=== PATIENT | female | born 1955 | race Caucasian/White ===

== ENCOUNTER 2018-10-03 09:32 | Inpatient (IN) | payer MEDICAID, OTHER, SELFPAY ==
[2018-09-19 13:34] VITALS: BMI 36.6
[2018-09-19 13:54] VITALS: BMI 36.1
[2018-10-03] VITALS (18 sets, daily range): BP systolic 119–167; BP diastolic 52–103; PULSE 86–109; RESP 10–94; TEMP 36.1–37.4; O2SAT 74–100; BMI 36.1
[2018-10-03] MEDS: ACETAMINOPHEN 325 MG TABLET 975 MG PO ×2 (09:49→23:03)
[2018-10-03] MEDS: LACTATED RINGERS 1,000 ML 42 ML IV ×2 (09:49→13:21)
[2018-10-03] MEDS: CELECOXIB 200 MG CAPSULE PO (09:49)
--- NOTE | 2018-10-03 10:10 | PM.PREOP ---
Pre-operative Note Interval Note History & Physical reviewed/Exam performed by Physician: Yes Changes to H&P: No
[2018-10-03] MEDS: CEFAZOLIN 2 GM/100 ML FROZ.PIGGY IV ×2 (10:55→19:36)
[2018-10-03] MEDS: TRANEXAMIC ACID 1,000 MG VIAL 1000 MG INJ ×2 (11:21→12:27)
--- NOTE | 2018-10-03 11:32 | SUR.OPER ---
Supine on padded OR bed. Pillow under head, arms secured on padded armboards <90 degree abduction. Safety belt across torso. Non-operative leg secured with tape over blanket over lower leg. Operative leg secured in DeMayo/Dimitry positioner. Foam padded brace at thigh of operative leg.
[2018-10-03] MEDS: BUPIVACAINE LIPOSOME 266 MG/20 ML VIAL INJ (11:42)
[2018-10-03] MEDS: BUPIVACAINE 0.25% W/ EPI 30 ML VIAL 60 ML INJ (11:43)
[2018-10-03] MEDS: MORPHINE 4 MG/ML INJ INJ (11:43)
--- NOTE | 2018-10-03 12:45 | PM.OP.1 ---
Operative Date/Time/Diagnoses Date of procedure: 10/03/18 Time of procedure: 12:30 Pre-op diagnosis: Right knee osteoarthritis Post-op diagnosis: same Procedure & Clinicians Procedure: Right total knee replacement Same procedure as scheduled: Yes Indications: The patient has had progressively worsening right knee pain with radiographic changes consistent with arthritis. Non-operative management has failed and the patient has requested total knee replacement. The risks, benefits and alternatives to surgery were discussed with the patient prior to proceeding. Risks discussed included, but were not limited to, failure to relieve pain, stiffness, infection, nerve damage, deep venous thrombosis, pulmonary embolism, stroke, coma, heart attack, permanent paralysis and , as well as the potential need for eventual revision of the prosthetic. Surgeon: Michael Quezada Batch Analyst: Phyllis Marrero Click Yes if Unassisted: No Anesthesia Type: Spinal, Sedation and Local Operative Notes Findings: Significant lateral and patellofemoral osteoarthritis with relative sparing of the medial compartment. Closure Type: primary Specimen(s): none sent Prosthetic devices, grafts, tissues, transplants, or devices: Implants used in this procedure were manufactured by the [employer] and [employer] and included the BCS II Journey total knee replacement with a size 4 right Oxinium femur, a size 4 right non porous tibial base plate, a 32 mm oval Ryann II patellar component and a 9 mm cross-linked polyethylene tibial insert. Applied: implant(s) Estimated Blood Loss (mL): 50 Blood products transfused: none Tourniquet time (min): 51 Procedure in detail: The patient was seen in the pre-operative area, where the patient identified the right knee as the operative site and this was marked with my initials. The patient received pre-operative antibiotics, and was taken to the operating room and placed on the operative table in the supine position. After satisfactory anesthesia, a multimedia author out was performed. The right leg was encircled with a tourniquet about the proximal thigh, and the leg was prepared from the toes to the tourniquet with ChloroPrep in the usual fashion and draped through sterile drapes. The leg was elevated and exsanguinated with Eschmark bandage and the tourniquet inflated to 250 mmHg pressure. The knee was approached through an approximately 18 cm incision centered over the patella and carried into the knee through a medial parapatellar arthrotomy. The anterior osteophytes and soft tissues were removed. The rotational landmarks of Lycoming's line and the transepicondylar axis were marked on the femur with electrocautery, and intramedullary guide holes for the femur and tibia were created. The distal femoral cut was made in 6 degrees of valgus using the intramedullary guide at the primary cut setting. The proximal tibial cut was then made using the intramedullary guide, taking 9 mm of bone off the less involved side. The extension gap was checked and the rotation of the femoral component confirmed with the gap balancing system. The anterior, posterior and chamfer cuts were then made. The posterior osteophytes and soft tissues were then removed. The posterior capsule was injected with part of a mixture of 60 ml 0.25% Marcaine mixed with 20 ml Exparel and 4 mg of morphine for post-operative pain control. The remainder of this mixture was injected into the capsule and subcutaneous tissues during cement curing. The tibia was prepared with the rotation set by an extra medullary guide. Trial tibial and femoral components were then placed and the intercondylar notch cut through the femoral trial. Range of motion was 0-135 degrees, with good stability throughout the range. The patella was then cut to accommodate the patellar prosthetic. There was no need for a lateral release. The trials were then removed, and the femoral hole plugged with a bone plug. The bone was prepared with pulsatile lavage, and dried with a sponge. Cement was applied and the final prosthetics placed. Excess cement was removed during and after cement curing. After confirming there was no extruded cement posteriorly, the final tibial insert was placed. The knee was copiously irrigated and the tourniquet deflated. Hemostasis was obtained. The capsule was closed with interrupted # 2 polyester suture. The subcutaneous layer was closed with 3-0 Vicryl, and the skin with a running 3-0 V-Lock suture and SteriStrips. An Aquacel Ag dressing was applied and the patient was taken to recovery having tolerated the procedure well. Complications: none Condition: stable Disposition: PACU Plan for aftercare: The patient will be maintained on a standard total knee replacement protocol with weight bearing as tolerated. The patient will receive aspirin and sequential compression devices for DVT prophylaxis. The patient will be discharged home when safe for the home environment.
[2018-10-03] MEDS: HYDROMORPHONE 2 MG INJ 0.5 MG IV ×8 (12:55→13:30)
[2018-10-03] MEDS: LORazepam 2 MG/ML SYRINGE 0.25 MG IV ×3 (13:25→13:35)
[2018-10-03] MEDS: fentaNYL 100 MCG/2 ML INJ 50 MCG IV ×2 (13:35→13:40)
[2018-10-03] MEDS: hydrOXYzine 50 MG/ML INJ 25 MG IM (13:40)
[2018-10-03] MEDS: LACTATED RINGERS 1,000 ML 125 ML IV (14:45)
[2018-10-03] MEDS: NALOXONE 0.4 MG/ML VIAL IV ×2 (14:50→14:52)
--- NOTE | 2018-10-03 15:16 | SUR.PHASEI ---
PT HAD A ROUGH RECOVERY IN pacu REQUIRING Q 5 MINUTE pain meds until vital signs and demeanor improved. pt continued to state 20/10 pain even when appearing quite comfortable on face or FLACC scale. I stopped medicating with narcotics for 35 minutes prior to start of transfer. pt off narcotics for 45 minutes at time of report to acute care RN. However, on transfer pt appeared sleepy and acute care equipment having difficulty maintaining a reliable SPO2 reading pt would range from 98 % to 60 % range but still alert and oriented and answering questions with pink warm dry skin. at approximately 1450 was unable to obtain an spo2 and pt started to appear dusky and would not respond to name or tactile stimulation. acute care Day-RN was still at bedside we opened and used Ambu bag while calling for immediate assistance/ rapid response. Hospitalist , RT and nursing staff all assisted. pt had pulse throughout and very shallow respirations . Narcan administered with immediate return of SPO2 to 99 %. Dr Culp-anesthesia and Dr. Quezada - surgeon notified
--- NOTE | 2018-10-03 15:42 | PC.NURSE ---
1425 Pt arrived from PACU via bed. Pt has c-pap on. Pt is awake, skin/ lips are pink. sats are ranging from 99 to 77.1440 RT notified to get a good connection for accurate Sats monitoring. 1449 Pt WRITING CENTER DIRECTOR at bedside and removed cpap to start NC O2, Pt non responsive at this time,, pushed alarm button, got ambu bag respirations started. [id number] Dr Huff at bedside, Narcan IV given immed. Pt responded immed, eyes open, turned head. 1452 additional 0.4mg Narcan given as Pt unresponsive again. Pt responed immed . [address] Pt on tele now. SCDs non bilat lower ext. abiodun wrap to R TKA in place. Pt able to move feet. 1515 Glucose 171. Spouse remains at bedside. Pt c/o pain, next shift was given report. Not able to safely give narcotics at this time. Pt on c pap w/2L O2 bleed in.
[2018-10-03 15:48] LABS: Add Manual Diff / Slide Review NO; Basophils Absolute Auto 0 /uL (0-100); Basophils Percent Auto 0.1 % (0-2); Eosinophils Absolute Auto 0 /uL (0-450); Eosinophils Percent Auto 0.1 % (2-4); Hematocrit 38.9 % (36-46); Hemoglobin 12.9 g/dL (12.0-16.0); Lymphocytes Absolute Auto 600 /uL (1100-4500); Lymphocytes Percent Auto 3.9 % (25-40); Mean Corpuscular HGB Conc 33.2 % (30-36); Mean Corpuscular Hemoglobin 30.6 PG (26-34); Mean Corpuscular Volume 92.2 fL (80-100); Monocytes Absolute Auto 200 /uL (0-900); Monocytes Percent Auto 1.3 % (3-14); Neutrophils Absolute Auto 14800 /uL (1500-7000); Neutrophils Percent Auto 94.6 % (50-75); Platelet Count 236 X10^3/uL (150-400); Red Blood Cell Count 4.22 X10^6/uL (4.0-5.2); Red Cell Distribution Width 13.6 % (11.6-14.8); White Blood Cell Count 15.6 X10^3/uL (4.5-11.0)
[2018-10-03 16:05] LABS: Alanine Aminotransferase 26 IU/L (9-52); Albumin Globulin Ratio 1.4 (1.0-2.8); Alkaline Phosphatase 116 U/L (38-126); Aspartate Aminotransferase 22 IU/L (14-36); BUN Creatinine Ratio 25.7 (6-22); Bilirubin Total 0.4 mg/dL (0.2-1.3); Blood Urea Nitrogen 18 mg/dL (7-17); Calcium 8.8 mg/dL (8.4-10.2); Carbon Dioxide 30 mmol/L (22-32); Chloride 99 mmol/L (98-107); Creatine Kinase 52 U/L (30-135); Estimated Glomerular Filt Rate > 60.0 mL/min (>60); Globulin 2.9 g/dL (1.7-4.1); Glucose 170 mg/dL (80-110); HEMOLYSIS < 15 (0-50); Magnesium 1.7 mg/dL (1.6-2.3); Sodium 137 mmol/L (137-145); Total Protein 6.9 g/dL (6.3-8.2)
[2018-10-03 16:15] LABS: Troponin I < 0.012 ng/mL (0.01-0.034)
--- NOTE | 2018-10-03 16:24 | PT.IPTN ---
Current Diagnoses Bilateral primary osteoarthritis of knee (10/03/18) Poisoning by unspecified antiepileptic and sedative-hypnotic drugs, accidental (unintentional), initial encounter (10/03/18) Surgery Performed Operation Date: 10/03/18 10:45 Actual Procedures p Total Knee Arthroplasty(Right) - Michael Quezada MD Physical Therapy Treatment Note M3 PT-IP Subjective Start: 10/03/18 16:23 Freq: NEEDED Status: Active Protocol: Document 10/03/18 16:23 AB (Rec: 10/03/18 16:24 AB [id number]) Subjective Physical Therapy Visit Type Notes per nurse, pt had an episode of not breathing and currently transferred to ICU due to O2 desaturation. pt on hold for PT eval today. will follow up tomorrow.
--- NOTE | 2018-10-03 16:25 | PC.NURSE ---
1545: Since rapid response and Narcan administration, patient observed awake, alert, body with slight tremor at times. VS stable, HR tachy at [address] bpm. EKG result sinus tach. Dr Huff in patient's room a couple of times to assess situation. I requested that Day SANFORD day shift, who I had just gotten report from, call Dr Culp to notify her of situation, as patient had spinal anethesia and that this was hospital protocol to notify the Anesthesiologist. Day day shift RN then called down to PACU to notify Dr Culp of situation, Day spoke to OR it disaster recovery manager who stated that Dr Quezada and Dr Culp were aware of the situation, but in a case but would see patient after out of OR. Patient observed with tears running down face, crying & upset, she stated to me that pain was really bad, saying can't you give me something? Talked to patient & spouse about which medications she received in OR/PACU, I explained that Lorazepam & Vistaril are still working to relieve pain & relax her & that this nurse was uncomfortable giving her narcotic medication at this point. After talking to patient & having her deep breathe & concentrate on other things, she fell asleep easily, wearing CPAP with 2L O2 bled into CPAP. When i walked out of room within 1-2 minutes her continuous pulse ox alarmed, pt observed with CPAP mask on face, patient with observable apnea, sats 74-75% She easily woke to voice, after deep breathing sats went immediately back up to 99%. When dozing again, sats dropped to low 80's. I increased supplemental O2 to 3L and called studio operations manager Jeanne to notify that I was needing to be 1:1 with this patient to keep her awake, alert & breathing with sats over 88% She told me that she would transfer patient to ICU for closer nurse/patient observation. Spouse at bedside, aware of plan to transfer patient. 1600: RT was notified of situation & need for them to assist during transport. Pt transfered by bed, by charger operator helper Jeanne & RT, pt on MI hooked up to portable O2 tank during transfer. patient report given to Nimo SANFORD. I notified PACU that patient had been transfered, nurse stated she would pass message on to Dr Culp.
[2018-10-03] MEDS: NALOXONE 0.4 MG/ML VIAL 0.2 MG IV (16:30)
[2018-10-03] MEDS: ACETAMINOPHEN 1,000 MG/100 ML VIAL IV (17:51)
[2018-10-03] MEDS: LACTATED RINGERS IV ×2 (17:52→17:54)
[2018-10-03] MEDS: NALOXONE IV ×2 (17:52→17:54)
[2018-10-03] MEDS: INSULIN ASPART 100 UNIT/ML INSULN PEN SUBCUT ×2 (18:06→20:24)
[2018-10-03] MEDS: HYDROMORPHONE 2 MG TABLET PO ×2 (19:31→20:22)
[2018-10-03] MEDS: DOCUSATE 100 MG CAPSULE PO (20:22)
[2018-10-03] MEDS: ASPIRIN EC 81 MG TABLET PO (20:22)
[2018-10-03] MEDS: ATORVASTATIN 20 MG TABLET PO (20:22)
[2018-10-03] MEDS: DULOXETINE 30 MG CAPSULE 60 MG PO (20:23)
[2018-10-03] MEDS: GABAPENTIN 300 MG CAPSULE PO (20:23)
[2018-10-03] MEDS: hydrOXYzine pamoate 25 MG CAPSULE PO (20:24)
--- NOTE | 2018-10-03 22:08 | PC.NURSE ---
Evening Shift Note: Pt received from Acute Care following narcan administration after coming to floor from PACU post-op. Pt arrives on 2 L NC, somnolent, frequent desaturations to 82% with periods of apnea when pt not stimulated. Pt placed on home cpap with CO2 monitor under mask. Pt unable to maintain wakefulness or respiratory status. Despite somnolence pt reporting severe pain, up to 10/10, described as sharp and throbbing. Given additional 0.2 mg IV narcan with improvement of respiratory status, although pt remained somnolent and had difficulty staying awake during meal. Pt denies nausea. Able to tolerate ADA diet. R foot with postive DP and warm, good cap refill, though slight numbness in right foot. Dr. Culp to bedside to formulate pain plan. Pt given 1000 mg iv tylenol per MD order. Started on gtts of LR with 0.4 mg iv narcan per 1 L, Dr. Culp explained that this could help improve respiratory status with only minimal effect on pain relief. Pt then crying, with pain 10/10, more wakeful and no longer having apnea. Given 2 mg po dilaudid with pain level only minimally improved to 9/10. Then given pm meds including gabapentin with an additional 2 mg po dilaudid and 25 mg po vistiril. Pt now reports pain 5/10 and tolerable. Maintaining RR 12, SPO2 on 1 L NC is 94%. Will continue to monitor, notify MD with changes.
[2018-10-03] MEDS: HYDROMORPHONE 4 MG TABLET PO (23:49)
[2018-10-04] VITALS (7 sets, daily range): BP systolic 104–151; BP diastolic 50–94; PULSE 77–97; RESP 14–18; TEMP 36.1–36.5; O2SAT 81–99
[2018-10-04] MEDS: CEFAZOLIN 2 GM/100 ML FROZ.PIGGY IV (04:11)
[2018-10-04] MEDS: HYDROMORPHONE 4 MG TABLET PO (04:12)
[2018-10-04 05:12] LABS: Hematocrit 36.3 % (36-46); Hemoglobin 12.2 g/dL (12.0-16.0)
--- NOTE | 2018-10-04 06:47 | PC.NURSE ---
Patient is alert and oriented, drowsy after receiving PO Dilaudid per prn orders, but still appropriate. Slept with 1.5L O2, SpO2 >92%, ETCO2 40s, removed cannula in am, but she desats to 86% when dozing, RR 12-18, breath sounds CTA, has harsh cough. SR, VSS. LR with narcan infused overnight as ordered, SL in am, tolerating PO intake. CMS intact, drsg CDI.
--- NOTE | 2018-10-04 07:58 | PM.PNPO.1 ---
Subjective Date Patient Seen: 10/04/18 Time Patient Seen: 07:58 Interval history: The patient reports that her pain finally got under control this morning. Yesterday she was reporting ?05/04? pain and was over narcotized. Exam Vital Signs (past 8 hours): - 10/04/18 00:00 10/04/18 04:10 Temperature 97.0 F L 97.4 F L Pulse Rate 96 H 77 Respiratory Rate 14 16 Blood Pressure 151/94 H 135/73 Pulse Oximetry 98 98 Oxygen Delivery Method [place] Nasal Cannula Oxygen Flow Rate 1 Narrative Exam Narrative: Right knee wound is dressed. There is no drainage on the bandage. Calf is soft. Light touch and motion are intact in the right lower extremity. Objective Labs Result Diagrams: 10/04/18 04:45 10/03/18 15:28 Labs: Laboratory Results - last 24 hr 10/03/18 10/03/18 10/04/18 15:28 15:28 04:30 WBC 15.6 H RBC 4.22 Hgb 12.9 Hct 38.9 MCV 92.2 MCH 30.6 MCHC 33.2 RDW 13.6 Plt Count 236 Neut % (Auto) 94.6 H Lymph % (Auto) 3.9 L [place] % (Auto) 1.3 L Eos % (Auto) 0.1 L Baso % (Auto) 0.1 Neut # (Auto) 48626 H Lymph # (Auto) 600 L [place] # (Auto) 200 Eos # (Auto) 0 Baso # (Auto) 0 Sodium 137 Potassium 4.0 Chloride 99 Carbon Dioxide 30 BUN 18 H Creatinine 0.70 Estimated GFR > 60.0 BUN/Creatinine Ratio 25.7 H Glucose 170 H Calcium 8.8 Magnesium 1.7 Total Bilirubin 0.4 AST 22 ALT 26 Alkaline Phosphatase 116 Total Creatine Kinase 52 CK-MB (CK-2) TNP CK-MB (CK-2) Rel Index TNP Troponin I < 0.012 Total Protein 6.9 Albumin 4.0 Globulin 2.9 Albumin/Globulin Ratio 1.4 Nasal Screen MRSA (PCR) Negative for mrsa 10/04/18 04:45 WBC RBC Hgb 12.2 Hct 36.3 MCV MCH MCHC RDW Plt Count Neut % (Auto) Lymph % (Auto) [place] % (Auto) Eos % (Auto) Baso % (Auto) Neut # (Auto) Lymph # (Auto) [place] # (Auto) Eos # (Auto) Baso # (Auto) Sodium Potassium Chloride Carbon Dioxide BUN Creatinine Estimated GFR BUN/Creatinine Ratio Glucose Calcium Magnesium Total Bilirubin AST ALT Alkaline Phosphatase Total Creatine Kinase CK-MB (CK-2) CK-MB (CK-2) Rel Index Troponin I Total Protein Albumin Globulin Albumin/Globulin Ratio Nasal Screen MRSA (PCR) Assessment & Plan Post-op Postoperative Procedures Operation Date: 10/03/18 10:45 Actual Procedures Side Surgeon p Total Knee Arthroplasty Right Michael Quezada MD Postoperative day: 1 Postoperative status: doing well, marginal pain control and anemia Postoperative status narrative: The patient is stable postoperative day 1 status post right total knee replacement. She has a mild, anticipated, post hemorrhagic anemia. She has had poor pain control and was over narcotized yesterday in an attempt to get it under control. I suspect a portion of this is due to anxiety about the procedure which she expressed preoperatively. Postoperative plan: routine post-op care and ambulate Postoperative plan narrative: I had an extensive discussion this patient regarding appropriate pain control. She has demanded to be awakened out of complete sleep to receive her narcotic pain relievers as a scheduled medication. I have explained to her that I do not wish her to be over narcotized again and I would prefer that she awaken and then ask for her medications. I reassured her that there is nothing that has gone wrong with her procedure and the both the operative procedure and her x-rays look perfect. We will advance her physical therapy today and keep her in the hospital for additional observation. Time Spent With Patient less than 15 minutes
--- NOTE | 2018-10-04 08:14 | CM.DANOTE ---
DCP:Case received, EMR reviewed and met with patient. Introduced self and role. DCP template completed with information currently available. Patient is a 63 year old female who admitted yesterday morning to the care of the surgical team. PCP: [facility] [place]/Medicaid. Patient came to hospital for surgical procedure. She had R. total knee arthroplasty. Patient has had chronic knee pain, which has continued to worsen. Patient is in the ICU secondary to some decreased oxygen sats due to pain medication. Met with patient in her room, she was alert and awake. She is independent at home, and lives with her , Khurram. Patient stated that she has not had to use a walker or cane prior to surgery, and she has been driving. She stated, she hopes that she can go home tomorrow. P: DCP to follow closely. Will see how she does with physical therapy when she is able. Radha Whitney RN/Night Time Babysitter
[2018-10-04] MEDS: INSULIN ASPART 100 UNIT/ML INSULN PEN SUBCUT ×2 (08:45→12:01)
[2018-10-04] MEDS: MELOXICAM 7.5 MG TABLET 15 MG PO (08:47)
[2018-10-04] MEDS: ACETAMINOPHEN 325 MG TABLET 975 MG PO ×3 (08:48→20:49)
[2018-10-04] MEDS: DULOXETINE 30 MG CAPSULE 60 MG PO ×2 (08:49→20:50)
[2018-10-04] MEDS: ASPIRIN EC 81 MG TABLET PO ×2 (08:49→20:51)
[2018-10-04] MEDS: DOCUSATE 100 MG CAPSULE PO ×2 (08:49→20:52)
[2018-10-04] MEDS: GABAPENTIN 300 MG CAPSULE PO ×2 (08:50→20:51)
[2018-10-04] MEDS: hydroCHLOROthiazide 25 MG TABLET PO (08:50)
[2018-10-04] MEDS: LOSARTAN 50 MG TABLET 100 MG PO (08:51)
[2018-10-04] MEDS: METFORMIN XR 500 MG TABLET PO (08:52)
[2018-10-04] MEDS: PANTOPRAZOLE 20 MG TABLET PO (08:52)
[2018-10-04] MEDS: HYDROMORPHONE 2 MG TABLET 4 MG PO ×4 (09:02→19:40)
--- NOTE | 2018-10-04 10:49 | PT.IIE ---
Current Diagnoses Bilateral primary osteoarthritis of knee (10/03/18) Poisoning by unspecified antiepileptic and sedative-hypnotic drugs, accidental (unintentional), initial encounter (10/03/18) Surgery Performed Operation Date: 10/03/18 10:45 Actual Procedures p Total Knee Arthroplasty(Right) - Michael Quezada MD Surgical History (Last Updated 09/19/18 @ 13:55 by Tessa Terry, RN) History of arthroscopy of both knees (Acute) History of lumbar surgery (Acute) History of total left hip arthroplasty (Acute ~2014) Hx of tonsillectomy (Acute) S/P left rotator cuff repair (Acute) Medical History (Last Updated 09/19/18 @ 13:57 by Tessa Terry RN) HLD (hyperlipidemia) (Acute) HTN (hypertension) (Acute) History of hysterectomy (Acute) Knee tumor (Acute) Pre-diabetes (Acute) Sleep apnea with use of continuous positive airway pressure (CPAP) (Acute) Physical Therapy Inpatient Evaluation/Re-Eval M1 PT/OT-IP Prior Functional Status Start: 10/03/18 16:23 Freq: NEEDED Status: Active Protocol: Document 10/04/18 10:49 AB (Rec: 10/04/18 12:02 AB [id number]) Medical Review Prior Functional Status Medical History Reviewed Yes Communication able to make needs known Mobility and Gait stated that she is modified independent with all mobilities and ambulation without AD Social History Household Members spouse Living Arrangements House Number of Floors (Floors) One Floor Number of Stairs To Enter/Railing? 4 steps to enter with bilateral wide rails and can only hold on to one rail at a time Home Environment High Toilet Walk in Shower Home Equipment Four Wheel Walker Straight Cane Additional Social History Comment stated that she has a high bed and steps up on a stool to get in M2 PT-IP Current Condition Start: 10/03/18 16:23 Freq: NEEDED Status: Active Protocol: Document 10/04/18 10:49 AB (Rec: 10/04/18 12:02 AB [id number]) Physical Therapy Current Condition Current Condition Evaluation Date 10/04/18 Treatment Diagnosis s/p R TKA; difficulty in walking Onset Date 10/03/18 Weight Bearing Status Weight Bearing Status Weight Bear as Tolerated M3 PT-IP Subjective Start: 10/03/18 16:23 Freq: NEEDED Status: Active Protocol: Document 10/04/18 10:49 AB (Rec: 10/04/18 12:02 AB [id number]) Subjective Physical Therapy Visit Type Type Initial Evaluation Visit Start Time 10:49 Visit Stop Time 11:32 Total Visit Minutes 43 Number of ORNAMENTAL PLASTER STICKER Visits 0 Physical Therapy Visit Comments Patient Comments pt agrees to do PT but requested to go back to bed afterwards Therapy Pain Assessment Pain When Pain Assessed At Rest Pain Present Pain Present Pain Reported Location Right Knee Intensity 2 Scale Used increases to 10/10 with movement Pain Management Techniques Apply Cold Re-positioning Timing of Activity with Medications M4 PT-IP Mobility and Gait Start: 10/03/18 16:23 Freq: NEEDED Status: Active Protocol: Document 10/04/18 10:49 AB (Rec: 10/04/18 12:02 AB [id number]) PT-Bed Mobility Assessment Sit to Supine Sit to Supine Minimal Assistance PT-Transfer Assessment Sit to and From Stand Sit to and from Stand Moderate Assistance 1 Person Assistance Use of Upper Extremities Equipment Transfer Assistive Device Gait Belt Front Wheeled Walker Orthotic/Prosthetic Devices or Brace: No Gait Assessment Gait Gait Assistance Required: Moderate Assistance 1 Person Assist Distance (Feet) 8 Able to Maintain Weight Bearing Status Yes During Gait Assistive Devices Assistive Device Gait Belt Front Wheeled Walker Orthotic/Prosthetic Devices or Brace: No Gait Deviations General Gait Pattern Antalgic Decreased Stride Length Decreased Feet Clearance Step-to Gait Factors Limiting Gait Function Factors Limiting Gait Function Decreased Activity Tolerance Decreased Strength Limited Range of Motion Pain Poor Balance Comments Gait Comments Pt with slight R knee buckling with ambulation requiring assist to stabilize and cues to activate quads PT-Balance Assessment Sitting Balance and Reactions Static Sitting Balance Ability Good Dynamic Sitting Balance Ability Good Standing Balance and Reactions Static Standing Balance Ability Fair Dynamic Standing Balance Ability Poor Device Used FWW M5 PT-IP Objective Assessments Start: 10/03/18 16:23 Freq: NEEDED Status: Active Protocol: Document 10/04/18 10:49 AB (Rec: 10/04/18 12:02 AB [id number]) Orientation Orientation/Cognition Level of Alertness Alert Orientation Name Age Birthday Place Situation Language Function Ability No Deficits Noted Memory Description Short Term Impaired Gross Range of Motion Lower Extremity ROM Assessment Right Impaired Impairments R knee flexion only up to ~ 70 deg R knee extension lacking ~ 20 deg to neutral Strength Lower Extremity Strength Assessment Right Impaired Knee 3-/5 Coordination Assessment Gross Coordination Gross Coordination WNL Sensation Assessment Sensation Gross Sensation WNL Muscle Tone Muscle Tone WNL Yes M6 PT-IP Treatment Start: 10/03/18 16:23 Freq: NEEDED Status: Active Protocol: Document 10/04/18 10:49 AB (Rec: 10/04/18 12:02 AB [id number]) Physical Therapy Treatment Exercises Exercises Ankle Pumps Quad Sets Heel Slides Education Education Provided Precautions Weight Bearing Status Post-Op Packet Safety M7 PT-IP Assessment and Plan Start: 10/03/18 16:23 Freq: NEEDED Status: Active Protocol: Document 10/04/18 10:49 AB (Rec: 10/04/18 12:02 AB [id number]) PT Summary Assessment and Plan Potential Rehabilitation Potential Good Status of Condition at Evaluation Evolving Summary Impairments Pain ROM Strength Balance Coordination Sensation Tone Cognition Bed Mobility Transfers Gait Activity Tolerance Assessment Summary pt requiring mod A with transfers and ambulation using FWW. pt plans to go home with spouse to assist. caregiver training will be conducted and stair training prior to d/c. pt stated that she is set up for outpt PT. Goals Bed Mobility Goal Standby Assistance Transfer Goal Standby Assistance Front Wheeled Walker Four Wheeled Walker Gait Goal Standby Assistance Front Wheel Walker Four Wheel Walker Gait Distance 150 Other Goals up/down 4 steps with 1 rail SBA up/down step stool using FWW to get into bed SBA Days to Meet Goals 5 Frequency of Treatment Frequency Of Treatment Twice a Day Treatment Plan Physical Therapy Treatment Plan Bed Mobility Training Transfer Training Gait Training Therapeutic Exercise Balance Retraining Post Op Education Discharge Planning Hot or Cold Pack Neuromuscular Re-ed Coordination Retraining Manual Therapy Other Recommendations and Next Treatment ambulation, caregiver training Focus when appropriate, bed mobility Recommendations To Nursing Amount of Assist Needed 1 Person Assist Discharge Recommendations PT Discharge Recommendations Home with Assistance Outpatient PT Equipment Needed for Home Before FWW if not safe with 4WW Discharge
--- NOTE | 2018-10-04 14:23 | PC.NURSE ---
Day Shift Note Alert and oriented x3. On 2L NC with oxygen sats 92-98%. Up to chair for the majority of the AM and then back to bed with PT. One person assist with FWW. Attempted to wean to RA but oxygen saturations decreased to 81% when pt at rest - RR in the 12-14 bpm range but breathing is visibly shallow. Encouraged to cough and deep breathe and to use IS with oxygen sats increasing to 98%. Oxygen sats would then decrease again to 80-81% while resting. 2L NC thus replaced. Reports pain 13/10 prior to pain medication administration, decreasing to 7/10 on reassessment and patient stating she is good. Able to participate in therapy and is currently sitting up in bed talking with visitors. Ice pack in place to right knee. Call light within reach, using appropriately to make needs known.
--- NOTE | 2018-10-04 14:36 | PT.IPTN ---
Current Diagnoses Bilateral primary osteoarthritis of knee (10/03/18) Poisoning by unspecified antiepileptic and sedative-hypnotic drugs, accidental (unintentional), initial encounter (10/03/18) Surgery Performed Operation Date: 10/03/18 10:45 Actual Procedures p Total Knee Arthroplasty(Right) - Michael Quezada MD Physical Therapy Treatment Note M2 PT-IP Current Condition Start: 10/03/18 16:23 Freq: NEEDED Status: Active Protocol: Document 10/04/18 10:49 AB (Rec: 10/04/18 12:02 AB [id number]) Physical Therapy Current Condition Current Condition Evaluation Date 10/04/18 Treatment Diagnosis s/p R TKA; difficulty in walking Onset Date 10/03/18 Weight Bearing Status Weight Bearing Status Weight Bear as Tolerated M3 PT-IP Subjective Start: 10/03/18 16:23 Freq: NEEDED Status: Active Protocol: Document 10/04/18 14:36 AB (Rec: 10/04/18 15:57 AB [id number]) Subjective Physical Therapy Visit Type Type Treatment Note Visit Start Time 14:36 Visit Stop Time 15:34 Total Visit Minutes 58 Number of INTEGRATED CIRCUIT FABRICATOR Visits 0 Physical Therapy Visit Comments Patient Comments pt agreeable to do PT Therapy Pain Assessment Pain When Pain Assessed At Rest Pain Present Pain Present Pain Reported Location Right Knee Intensity 2 Scale Used Numeric (1 - 10) Pain Management Techniques Apply Cold Re-positioning Timing of Activity with Medications M4 PT-IP Mobility and Gait Start: 10/03/18 16:23 Freq: NEEDED Status: Active Protocol: Document 10/04/18 14:36 AB (Rec: 10/04/18 15:57 AB [id number]) PT-Bed Mobility Assessment Supine to Sit Supine to Sit Standby Assistance PT-Transfer Assessment Sit to and From Stand Sit to and from Stand Contact Guard Assistance Equipment Transfer Assistive Device Gait Belt Front Wheeled Walker Orthotic/Prosthetic Devices or Brace: No Transfers Transfer Destination Toilet Transfer Technique pt ambulated to the toilet using FWW Transfer Ability Level of Assist Contact Guard Assistance Use of Upper Extremities Comments Mobility Comments pt completed sit to stand from EOB CGA and cues for techniques. pt performed 5 reps. pt ambulated to the toilet using FWW CGA and cues. completed sit to stand from the toilet using grab bars CGA to min A. pt ambulated towards the sink using FWW CGA and was able to maintain standing using FWW CGA doing handwashing. pt agreed to do more ambulation. pt has a high bed at home and uses a foot stool to get up the bed. completed up/down foot stool into the bed using FWW x 2 reps. pt completed requiring CGA to min A and cues. pt agreed to sit up on chair afterwards. positioned pt on chair. ice pack provided. call light and table placed within reach. set up caregiver training with pt and spouse at 10 am tomorrow. Gait Assessment Gait Gait Assistance Required: Standby Assistance Minimum Assistance Distance (Feet) 125 Able to Maintain Weight Bearing Status Yes During Gait Assistive Devices Assistive Device Gait Belt Front Wheeled Walker Orthotic/Prosthetic Devices or Brace: No Gait Deviations General Gait Pattern Antalgic Decreased Stride Length Decreased Feet Clearance Step-to Gait Factors Limiting Gait Function Factors Limiting Gait Function Decreased Activity Tolerance Decreased Strength Limited Range of Motion Pain Poor Balance Poor Safety Awareness Comments Gait Comments pt with (+) LOB requiring min A while pushing FWW to get over sliding door thread. pt educated on how to manuever FWW over threads and curbs safely. pt understood. M5 PT-IP Objective Assessments Start: 10/03/18 16:23 Freq: NEEDED Status: Active Protocol: Document 10/04/18 10:49 AB (Rec: 10/04/18 12:02 AB [id number]) Orientation Orientation/Cognition Level of Alertness Alert Orientation Name Age Birthday Place Situation Language Function Ability No Deficits Noted Memory Description Short Term Impaired Gross Range of Motion Lower Extremity ROM Assessment Right Impaired Impairments R knee flexion only up to ~ 70 deg R knee extension lacking ~ 20 deg to neutral Strength Lower Extremity Strength Assessment Right Impaired Knee 3-/5 Coordination Assessment Gross Coordination Gross Coordination WNL Sensation Assessment Sensation Gross Sensation WNL Muscle Tone Muscle Tone WNL Yes M6 PT-IP Treatment Start: 10/03/18 16:23 Freq: NEEDED Status: Active Protocol: Document 10/04/18 14:36 AB (Rec: 10/04/18 15:57 AB [id number]) Physical Therapy Treatment Education Education Provided Weight Bearing Status Safety M7 PT-IP Assessment and Plan Start: 10/03/18 16:23 Freq: NEEDED Status: Active Protocol: Document 10/04/18 14:36 AB (Rec: 04/17/19 15:57 AB [id number]) PT Summary Assessment and Plan Potential Rehabilitation Potential Good Summary Impairments Pain ROM Strength Balance Coordination Sensation Tone Cognition Bed Mobility Transfers Gait Activity Tolerance Progress Towards Goals Slow Progress due to Pain Slow Progress due to Activity Tolerance Assessment Summary pt progressing with mobility and plans to go home with spouse to assist. caregiver training set up for tomorrow at 10 am. d/c depending on caregiver training and stair training. Goals Bed Mobility Goal Standby Assistance Transfer Goal Standby Assistance Front Wheeled Walker Four Wheeled Walker Gait Goal Standby Assistance Front Wheel Walker Four Wheel Walker Gait Distance 150 Other Goals up/down 4 steps with 1 rail SBA/SPC up/down step stool using FWW to get into bed SBA Days to Meet Goals 5 Frequency of Treatment Frequency Of Treatment Twice a Day Treatment Plan Physical Therapy Treatment Plan Bed Mobility Training Transfer Training Gait Training Therapeutic Exercise Balance Retraining Post Op Education Discharge Planning Hot or Cold Pack Neuromuscular Re-ed Coordination Retraining Manual Therapy Other Recommendations and Next Treatment caregiver training 10/05 10 am Focus ; stair training 1 rail and SPC Recommendations To Nursing Amount of Assist Needed 1 Person Assist Discharge Recommendations PT Discharge Recommendations Home with Assistance Outpatient PT Equipment Needed for Home Before FWW Discharge
[2018-10-04] MEDS: ATORVASTATIN 20 MG TABLET PO (20:52)
--- NOTE | 2018-10-04 21:31 | PC.NURSE ---
2100- Assessment reviewed and documentation is complete and accurate.
[2018-10-05] MEDS: HYDROMORPHONE 2 MG TABLET PO ×3 (01:30→15:34)
[2018-10-05 01:34] VITALS: BP 111/58; PULSE 81; RESP 16; TEMP 35.8; O2SAT 98
[2018-10-05] MEDS: ACETAMINOPHEN 325 MG TABLET 975 MG PO ×2 (04:13→15:33)
[2018-10-05] MEDS: HYDROMORPHONE 2 MG TABLET 4 MG PO ×2 (04:13→08:14)
[2018-10-05 04:22] VITALS: BP 148/74; PULSE 87; RESP 16; TEMP 36.3; O2SAT 98
--- NOTE | 2018-10-05 07:32 | P.DS_ITS ---
History of Present Illness Date Patient Seen: 10/05/18 Time Patient Seen: 07:29 Chief complaint: Total Knee Arthroplasty Narrative: The history and physical examination are contained in the chart and a previously completed note. Please refer to that note for this information. Discharge Providers Date of admission: 10/03/18 09:32 Discharge Date: 10/05/18 Primary care physician: Annabel Alcaraz PA-C Consults: 10/03/18 14:37 Consult to Discharge Planning Routine Comment: Consult to Physical Therapy Evaluate & Treat Comment: Physician Instructions: postop TKA protocol 10/03/18 15:08 Consult to Respiratory Therapy Evaluate & Treat Comment: Physician Instructions: Evaluate and treat Discharge provider: Michael Quezada MD Summary Discharge Diagnosis: 1. Right knee osteoarthritis 2. Mild post hemorrhagic anemia 3. Transitory respiratory depression due to over narcotization Hospital Course: The patient was admitted to the hospital and taken directly to the operating room on October 03, 2018. She underwent a right total knee replacement without complications. In the recovery room she complained of severe pain and received a large amount of narcotic pain reliever. This led to a a transitory respiratory depression which was reversed with appropriate use of Narcan. She was monitored closely during and after this event and this did not recur. She continued to complain of marginal pain control throughout her hospitalization but made good progress in physical therapy and it was felt that she would be ready for discharge on postoperative day 2 after additional physical therapy. Status at Discharge Cognitive/behavioral status at discharge: oriented Functional status at discharge: uses cane/walker Overall status at discharge: patient is progressing back to baseline Time Spent with Patient Less than 30 minutes Exam Vital Signs (past 8 hours): - 10/05/18 01:34 10/05/18 04:22 Temperature 96.5 F L 97.4 F L Pulse Rate 81 87 Respiratory Rate 16 16 Blood Pressure 111/58 L 148/74 H Pulse Oximetry 98 98 Oxygen Delivery Method Nasal Cannula Oxygen Flow Rate 2 Narrative Exam Narrative: Right knee wound is dressed with no drainage on the bandage. Calf is soft. Light touch and motion are intact in the right lower extremity Objective Labs Result Diagrams: 10/04/18 04:45 10/03/18 15:28 Discharge Plan Discharge Plan Patient Disposition: Home Discharge Med Rec/Prescriptions Prescriptions: New aspirin 81 mg Tablet,Delayed Release (Dr/Ec) 81 mg PO BID 42 Days Qty: 84 RF: 0 hydroxyzine pamoate 25 mg Capsule 25 mg PO Q6HR PRN (Reason: Nausea) Qty: 40 RF: 0 Continued metformin 500 mg Tablet 500 mg PO QAM RF: 0 pantoprazole 20 mg Tablet,Delayed Release (Dr/Ec) 20 mg PO DAILY RF: 0 gabapentin 300 mg Capsule 300 mg PO BID RF: 0 hydrochlorothiazide 25 mg Tablet 25 mg PO DAILY RF: 0 losartan 100 mg Tablet 100 mg PO DAILY RF: 0 duloxetine 60 mg Capsule,Delayed Release(Dr/Ec) 60 mg PO BID RF: 0 atorvastatin 20 mg Tablet 20 mg PO BEDTIME RF: 0 zolpidem 5 mg Tablet 5 mg PO BEDTIME RF: 0 hydrocodone-acetaminophen 5-325 mg Tablet 0.5 tab PO Q6H PRN (Reason: Pain (Scale Score 1-3)) RF: 0 Follow up/Referrals: Annabel Alcaraz PA-C [Primary Care Provider] - Michael Quezada MD [Physician] - 3-5 Days Provider Discharge Instructions Diet: Diet as Tolerated and Carb-consistent/Diabetic Activity: You may bear weight as tolerated on your right leg. Cold/Heat Therapy: Apply ice for 15 minutes every hour as needed for pain to the right knee. Skin/Wound/Dressing Care Report to your healthcare provider any signs of infection, such as:: chills, fever, night sweats, increased pain, unusual drainage and unusual redness Dressing: Remove the Art wrap 3 days after surgery. leave the deeper dressing in place. You may shower with the deeper dressing in place. If the central st rip of the deeper dressing becomes saturate with either water or blood please call the office to have it changed. Visit Report/Discharge Packet Instructions: DI for Knee Replacement Stand Alone Forms: Surgery Discharge Discharge Data Primary Care Provider: Annabel Alcaraz Attending Provider: Michael Quezada Admit Date/Time: 10/03/18 09:32
[2018-10-05 08:00] VITALS: BP 117/67; PULSE 89; RESP 18; TEMP 36.9; O2SAT 100
[2018-10-05] MEDS: POLYETHYLENE GLYCOL 3350 17 GM POWD.PACK PO (08:04)
[2018-10-05] MEDS: hydroCHLOROthiazide 25 MG TABLET PO (08:05)
[2018-10-05] MEDS: DULOXETINE 30 MG CAPSULE 60 MG PO (08:05)
[2018-10-05] MEDS: LOSARTAN 50 MG TABLET 100 MG PO (08:05)
[2018-10-05] MEDS: GABAPENTIN 300 MG CAPSULE PO (08:05)
[2018-10-05] MEDS: MELOXICAM 7.5 MG TABLET 15 MG PO (08:05)
[2018-10-05] MEDS: ASPIRIN EC 81 MG TABLET PO (08:05)
[2018-10-05] MEDS: PANTOPRAZOLE 20 MG TABLET PO (08:05)
[2018-10-05] MEDS: METFORMIN XR 500 MG TABLET PO (08:05)
[2018-10-05] MEDS: DOCUSATE 100 MG CAPSULE PO (08:06)
--- NOTE | 2018-10-05 10:52 | PC.NURSE ---
Addendum entered by Isis Ibarra R.N. 10/05/18 15:29: pt discharged per order- medicated with pain rx prior to dc Original Note: Addendum entered by Isis Ibarra R.N. 10/05/18 12:27: after speaking with PA - DR Quezada was called and his nurse responded to me with his response- pt has cleared all hurdles medically and PT cleared and they run the risk of having to pay out of pocket for additional 24 hours in hospital when not medically necessary- pt remains tearful and anxious but is understanding of this and is agreeable to dc Original Note: pt with dc orders this am from MD - reviewed plan with pt and her spouse and pt became tearful and obvious anxious about going home- she has worked with PT this am and cleared for steps and discharge per MD order- and in fact PT signing off this case. Pain seemingly controlled with po dilaudid and prn vistaril- update to ORTHO PA -
--- NOTE | 2018-10-05 11:44 | PT.IPTN ---
Current Diagnoses Bilateral primary osteoarthritis of knee (10/03/18) Poisoning by unspecified antiepileptic and sedative-hypnotic drugs, accidental (unintentional), initial encounter (10/03/18) Surgery Performed Operation Date: 10/03/18 10:45 Actual Procedures p Total Knee Arthroplasty(Right) - Michael Quezada MD Physical Therapy Treatment Note M2 PT-IP Current Condition Start: 10/03/18 16:23 Freq: NEEDED Status: Active Protocol: Document 10/04/18 10:49 AB (Rec: 10/04/18 12:02 AB [id number]) Physical Therapy Current Condition Current Condition Evaluation Date 10/04/18 Treatment Diagnosis s/p R TKA; difficulty in walking Onset Date 10/03/18 Weight Bearing Status Weight Bearing Status Weight Bear as Tolerated M3 PT-IP Subjective Start: 10/03/18 16:23 Freq: NEEDED Status: Active Protocol: Document 10/05/18 11:26 SA (Rec: 10/05/18 11:44 SA [email or web address]) Subjective Physical Therapy Visit Type Type Treatment Note Visit Start Time 09:58 Visit Stop Time 10:45 Total Visit Minutes 47 Number of CONSULTANT LUXURY AND AUTO. VICE PRESIDENT JAGUAR BRAND (EX ) Visits 1 Physical Therapy Visit Comments Patient Comments Pt up in chair with present, agreeable to PT. Therapy Pain Assessment Pain When Pain Assessed During Mobility Pain Present Pain Present Pain Reported Location Right Knee Intensity 2 Scale Used Numeric (1 - 10) Pain Management Techniques Apply Cold Re-positioning Timing of Activity with Medications M4 PT-IP Mobility and Gait Start: 10/03/18 16:23 Freq: NEEDED Status: Active Protocol: Document 10/05/18 11:26 SA (Rec: 10/05/18 11:44 SA [id number]) PT-Bed Mobility Assessment Supine to Sit Supine to Sit Standby Assistance Sit to Supine Sit to Supine Standby Assistance Scooting Scooting to Edge of Bed Standby Assistance Scooting Up and Down in Bed Standby Assistance PT-Transfer Assessment Sit to and From Stand Sit to and from Stand Contact Guard Assistance 1 Person Assistance Equipment Transfer Assistive Device Gait Belt Front Wheeled Walker Orthotic/Prosthetic Devices or Brace: No Transfers Transfer Destination Bed Chair Transfer Ability Level of Assist Standby Assistance Contact Guard Assistance 1 Person Assistance Comments Mobility Comments Simulation of getting in/out of elevated bed as she has at home. Pt able to ascend/ descend single 6 step and lift BLEs over EOB with SBA and min cues. Stand pivot txs to chair and EOB with SBA-CGA and FWW. Pt 02 sats 92-95% with mobility and no SOB noted . Gait Assessment Gait Gait Assistance Required: Contact Guard Assist Distance (Feet) 125 Able to Maintain Weight Bearing Status Yes During Gait Assistive Devices Assistive Device Gait Belt Front Wheeled Walker Orthotic/Prosthetic Devices or Brace: No Gait Deviations General Gait Pattern Antalgic Decreased Stride Length Decreased Feet Clearance Step-to Gait Factors Limiting Gait Function Factors Limiting Gait Function Decreased Activity Tolerance Decreased Strength Limited Range of Motion Comments Gait Comments Pt able to correct out of step to gait pattern with cues but relies heavily on UEs for WBing. Pt had minor knee buckle at end of walk but was able to correct/stabalize herself. Pt fearful of knee buckle, education provided on healing process and muscle recovery after surgery as this should correct with strengthening. Stair Climbing Assessment Evaluation Level of Assist On Stairs Contact Guard Assistance Devices Stair Climbing Assistive Devices Front Wheel Walker Technique/Endurance Stair Climbing Direction Ascend and Descend Stair Climbing Technique Step to Step Number of Steps Climbed 1 Query Text: Stair Climbing Set # Repetitions (reps) 3 Comments Stair Climbing Comments Pt able to ascend/descent single step 3x in a row with min cues and CGA. Also able to step up backwards onto step at EOB with CGA to simulate getting in/out of her elevated bed. PT-Balance Assessment Sitting Balance and Reactions Static Sitting Balance Ability Good Dynamic Sitting Balance Ability Normal M5 PT-IP Objective Assessments Start: 10/03/18 16:23 Freq: NEEDED Status: Active Protocol: Document 10/04/18 10:49 AB (Rec: 10/04/18 12:02 AB [id number]) Orientation Orientation/Cognition Level of Alertness Alert Orientation Name Age Birthday Place Situation Language Function Ability No Deficits Noted Memory Description Short Term Impaired Gross Range of Motion Lower Extremity ROM Assessment Right Impaired Impairments R knee flexion only up to ~ 70 deg R knee extension lacking ~ 20 deg to neutral Strength Lower Extremity Strength Assessment Right Impaired Knee 3-/5 Coordination Assessment Gross Coordination Gross Coordination WNL Sensation Assessment Sensation Gross Sensation WNL Muscle Tone Muscle Tone WNL Yes M6 PT-IP Treatment Start: 10/03/18 16:23 Freq: NEEDED Status: Active Protocol: Document 10/05/18 11:26 SA (Rec: 10/05/18 11:44 [id number]) Physical Therapy Treatment Exercises Exercises Ankle Pumps Gluteal Sets Quad Sets Heel Slides Education Education Provided Weight Bearing Status Safety M7 PT-IP Assessment and Plan Start: 10/03/18 16:23 Freq: NEEDED Status: Active Protocol: Document 10/05/18 11:26 (Rec: 10/05/18 11:44 [id number]) PT Summary Assessment and Plan Potential Rehabilitation Potential Good Summary Impairments Pain ROM Strength Balance Coordination Sensation Tone Cognition Bed Mobility Transfers Gait Activity Tolerance Assessment Summary Caregiver training completed with patient and spouse, pt anxious about probable d/c home today. Pt has FWW, elevated toilet seat and step for in/out of bed. Pt progressing well with mobilities requiring SBA for bed mobility and CGA for txs and gait. Pt also has OP PT set up for next week. Frequency of Treatment Frequency Of Treatment Twice a Day Treatment Plan Physical Therapy Treatment Plan Bed Mobility Training Transfer Training Gait Training Therapeutic Exercise Balance Retraining Post Op Education Discharge Planning Hot or Cold Pack Neuromuscular Re-ed Coordination Retraining Manual Therapy Recommendations To Nursing Amount of Assist Needed 1 Person Assist Discharge Recommendations PT Discharge Recommendations Home with Assistance Outpatient PT
[2018-10-05] MEDS: SODIUM CHLORIDE 0.9% FLUSH 10 ML IV (11:58)
== END 2018-10-05 15:34 | disposition home or self-care (01) | DRG 470 ==
LOC: AC 15:22 → ICU 15:52
PROVIDERS: Internal Medicine; Admitting Provider Orthopaedic Surgery; PCP Physician Assistant; Visit Provider Orthopaedic Surgery
PROC: 0SRC0JZ Replacement of Right Knee Joint with Synthetic Substitute, Open Approach (ICD-10-PCS; CPT 27447; principal; 2018-10-03 10:45)
DX: M17.11 Unilateral primary osteoarthritis, right knee (principal); Z96.642 Presence of left artificial hip joint; G47.33 Obstructive sleep apnea (adult) (pediatric); I10 Essential (primary) hypertension; E78.5 Hyperlipidemia, unspecified; R73.03 Prediabetes; Z79.84 Long term (current) use of oral hypoglycemic drugs; E66.9 Obesity, unspecified; Z68.38 Body mass index [BMI] 38.0-38.9, adult; T40.605A Adverse effect of unspecified narcotics, initial encounter; G93.89 Other specified disorders of brain
CPT/HCPCS: 36415; 80053; 82550; 82962; 83735; 84484; 85014; 85018; 85025; 87797; 93005; 93010; 97116; 97162; 97530; C1776; C9290; J0131; J0690; J1100; J1170; J2060; J2250; J2270; J2310; J2405; J2704; J3010; J3410

== ENCOUNTER → 2019-07-02 15:52 | Outpatient (CLI) | payer MEDICARE, OTHER, MEDICAID, SELFPAY ==
[2018-10-03 18:35] VITALS: BMI 36.1
[2019-07-02 17:54] LABS: Add Manual Diff / Slide Review NO; Basophils Absolute Auto 0 /uL (0-100); Basophils Percent Auto 0.5 % (0-2); Eosinophils Absolute Auto 100 /uL (0-450); Hematocrit 39.9 % (36-46); Hemoglobin 13.6 g/dL (12.0-16.0); Lymphocytes Absolute Auto 2100 /uL (1100-4500); Lymphocytes Percent Auto 29.4 % (25-40); Mean Corpuscular HGB Conc 34.1 % (30-36); Mean Corpuscular Hemoglobin 31.1 PG (26-34); Mean Corpuscular Volume 91.2 fL (80-100); Monocytes Absolute Auto 500 /uL (0-900); Monocytes Percent Auto 6.8 % (3-14); Neutrophils Absolute Auto 4400 /uL (1500-7000); Neutrophils Percent Auto 61.3 % (50-75); Platelet Count 252 X10^3/uL (150-400); Red Blood Cell Count 4.37 X10^6/uL (4.0-5.2); Red Cell Distribution Width 13.7 % (11.6-14.8); White Blood Cell Count 7.2 X10^3/uL (4.5-11.0)
[2019-07-02 18:01] LABS: Hemoglobin A1C% w Est Avg Glu 6.2 % (4.0-6.0)
[2019-07-02 18:11] LABS: Carbon Dioxide 32 mmol/L (22-32); Chloride 96 mmol/L (98-107); HEMOLYSIS 22 (0-50); Potassium 4.1 mmol/L (3.4-5.1); Sodium 137 mmol/L (137-145)
== END ==
PROVIDERS: PCP Physician Assistant; Visit Provider Orthopaedic Surgery
DX: Z01.812 Encounter for preprocedural laboratory examination (principal); Z01.818 Encounter for other preprocedural examination; R73.9 Hyperglycemia, unspecified
CPT/HCPCS: 36415; 80051; 83036; 85025; 93005

== ENCOUNTER 2019-08-02 15:05 | Observation (INO) | payer MEDICARE, MEDICAID, SELFPAY ==
[2018-10-03 18:35] VITALS: BMI 36.1
[2019-07-19 10:52] VITALS: BMI 37.5
[2019-08-01] VITALS (16 sets, daily range): BP systolic 97–142; BP diastolic 41–78; PULSE 73–87; RESP 12–16; TEMP 35.6–36.7; O2SAT 91–100; BMI 37.5
--- NOTE | 2019-08-01 06:00 | DI.RAD.S_ITS ---
PROCEDURE: XR PELVIS 1-2V INDICATIONS: right CARMEN TECHNIQUE: 1 view of the lower pelvis acquired. COMPARISON: None. FINDINGS: Bones: Patient is status post right hip arthroplasty, with hardware components in expected positions. The hip joint appears congruent. The visualized bony structures appear intact. Left hip arthroplasty noted. Lower lumbar spine spondylosis and facet disease Soft tissues: Overlying postoperative changes are noted. No suspicious soft tissue densities. IMPRESSION: Expected postoperative appearance Dictated by: Zbigniew Church M.D. on 08/01/2019 at 18:09 Approved by: Zbigniew Church M.D. on 08/01/2019 at 18:10
[2019-08-01] MEDS: ACETAMINOPHEN 325 MG TABLET 975 MG PO (10:39)
[2019-08-01] MEDS: CELECOXIB 200 MG CAPSULE PO (10:39)
[2019-08-01] MEDS: PREGABALIN 75 MG CAPSULE PO (10:56)
--- NOTE | 2019-08-01 11:48 | PM.PREOP ---
Pre-operative Note Interval Note History & Physical reviewed/Exam performed by Physician: Yes Changes to H&P: No
[2019-08-01] MEDS: LACTATED RINGERS 1,000 ML 42 ML IV ×2 (12:09→13:22)
[2019-08-01] MEDS: CEFAZOLIN 2 GM/100 ML FROZ.PIGGY IV ×2 (12:29→19:56)
[2019-08-01] MEDS: TRANEXAMIC ACID 1,000 MG VIAL 2000 MG INJ ×2 (12:50→13:57)
--- NOTE | 2019-08-01 13:03 | SUR.OPER ---
Lateral on padded OR bed. Gel axillary roll. Arms secured on padded armboard with pillow supporting top arm. Padded hip positioner braces x4 - anterior and posterior chest and pelvis. Additional gel pad used anterior pelvis. Gel pad under bottom leg from knee to foot and secured with tape over sheet.
[2019-08-01] MEDS: ROPIVACAINE 0.5% PF 5 MG/ML 20ML VIAL 60 ML INJ (13:09)
[2019-08-01] MEDS: MORPHINE 4 MG/ML INJ INJ (13:11)
[2019-08-01] MEDS: KETOROLAC 30 MG/ML VIAL IV (13:11)
--- NOTE | 2019-08-01 14:26 | PM.OP.1 ---
Operative Date/Time/Diagnoses Date of procedure: 08/01/19 Time of procedure: 14:26 Pre-op diagnosis: Right hip degenerative joint disease Post-op diagnosis: same Procedure & Clinicians Procedure: Right total hip arthroplasty (CPT code 13869 with apartment assistant manager) Same procedure as scheduled: Yes Indications: Patient is an 64-year-old female with severe right hip DJD. The patient has pain with activities and at rest, limited ambulation and activity tolerance, difficulties with ADLs, and failure of conservative treatment. We have discussed the nature of condition, treatment options, risks and benefits, and patient elects to proceed with total hip arthroplasty and gives informed consent. Surgeon: Mike Duval Mail Deliverer: Roni Mckenzie Anesthesia Type: General and Spinal Operative Notes Closure Type: primary Specimen(s): none sent Prosthetic devices, grafts, tissues, transplants, or devices: Acetabulum: Miguel [employer] Nephew R3 acetabular component size 50 mm Femoral component: Miguel [employer]hew Anthology stem size 8 with standard offset Femoral head: 32 mm + 0 Oxinium Estimated Blood Loss (mL): 200 Blood products transfused: none Procedure in detail: After satisfaction induction of anesthetic, and administration of IV antibiotics, the patient was positioned in the lateral decubitus position with all bony prominences well padded and pelvic position secured using a hip chief drafter positioning device. Right hip and lower extremity prepped and draped in the usual sterile fashion, 1st dose of intravenous tranexamic acid was administered, then a longitudinal incision was created centered over the greater trochanter and carried sharply through the skin and subcutaneous tissues down to the fascia kenisha which was divided longitudinally and retracted with a Charnley retractor. External rotators visualize, cut, tagged, and retracted posteriorly, then the capsule was cut in a T-type fashion with the corners tagged and retracted. Hip was dislocated and femoral neck cut made according to preoperative templating. Acetabular retractors then placed, and the acetabular labrum and osteophytes were excised. The acetabulum was then sequentially reamed to 49 mm with an excellent circumferential ream and fit with the trial. The trial component was removed and a permanent size 50 mm Miguel and Nephew R3 acetabular component was selected, positioned, and impacted with satisfactory position and fixation achieved. Permanent liner was then inserted with the elevated lip directed posteriorly. Soft tissue then removed off the lateral femoral neck in the lateral neck was entered using a box osteotome. T-handled reamers placed down the canal followed by sequential broaching to 8 with the final broach left in place for trial reduction which demonstrated excellent leg length, range of motion, and stability characteristics with a 32 mm +0 trial ball. The trial and broach were removed, and a permanent size 8 Miguel and Nephew Anthology stem was selected and inserted with excellent position and fixation achieved. Another trial reduction yielded the above characteristics so the trial ball was exchanged for a permanent 32 mm +0 Oxinium ball. The hip was irrigated and reduced and excellent leg length range of motion and stability characteristics were achieved and maintained. Periarticular tissues were infiltrated with ropivacaine, morphine, and Toradol. The hip was copiously irrigated, and the capsule repaired with #2 Ethibond, and the piriformis was repaired back to the greater trochanter with the same. Fascia kenisha closed with interrupted #1 Ethibond sutures, and the subcutaneous tissues were closed in 2 layers of 0 Vicryl and 2 0 Vicryl. Skin was closed with ebony and sterile dressings applied. Second dose of tranexamic acid was administered intravenously, and the anesthetic was terminated. Complications: none Post-operative Condition: stable Disposition: PACU Plan for aftercare: Patient will be admitted to the acute care faye, and anticipate discharge on postop day 1-2 with follow-up in office in 10-14 days. Outpatient physical therapy will be arranged and patient will continue to observe posterior hip precautions. Patient will continue use of postoperative Lovenox for 10 days postop.
[2019-08-01] MEDS: LACTATED RINGERS 1,000 ML 125 ML IV ×2 (15:49→23:43)
[2019-08-01] MEDS: ACETAMINOPHEN 325 MG TABLET 650 MG PO ×2 (16:00→20:04)
[2019-08-01] MEDS: METFORMIN HCL 500 MG TABLET PO (17:24)
[2019-08-01] MEDS: HYDROCODONE/ACET 5/325 TABLET 1 TAB PO (17:24)
[2019-08-01] MEDS: HYDROMORPHONE 2 MG TABLET PO (18:49)
[2019-08-01] MEDS: hydrOXYzine pamoate 25 MG CAPSULE PO (20:04)
[2019-08-01] MEDS: ATORVASTATIN 20 MG TABLET PO (20:04)
[2019-08-01] MEDS: DULOXETINE 30 MG CAPSULE 60 MG PO (20:04)
[2019-08-01] MEDS: GABAPENTIN 300 MG CAPSULE 600 MG PO (20:05)
[2019-08-01] MEDS: HYDROCODONE/ACET 5/325 TABLET 2 TAB PO (21:47)
[2019-08-01] MEDS: MAG HYDROX/ALUM/SIMETH 30 ML UDC PO (21:48)
--- NOTE | 2019-08-01 23:36 | PC.NURSE ---
Pt c/o L. chest discomfort and down under her breast, 2/10 pain. does not radiate to the back or arm. no abdominal pain. VSS. pt thinks it might be acid reflux. she does have hx acid reflux. notified Dr. Davenport, VTO Maalox PRN, continue to monitor. R.hip pain controlled with 2 tabs of norco. ordered to changed dosage of norco to 2 tabs. Dilaudid was ineffective. Pt ambulated to the BSC/fww.
[2019-08-01] MEDS: ZOLPIDEM 5 MG TABLET PO (23:42)
[2019-08-02] VITALS (7 sets, daily range): BP systolic 107–138; BP diastolic 52–66; PULSE 75–118; RESP 16–20; TEMP 36.1–36.7; O2SAT 87–96
[2019-08-02] MEDS: HYDROCODONE/ACET 5/325 TABLET 2 TAB PO ×4 (01:49→20:59)
[2019-08-02] MEDS: CEFAZOLIN 2 GM/100 ML FROZ.PIGGY IV (04:32)
[2019-08-02] MEDS: HYDROMORPHONE 2 MG TABLET PO ×3 (06:11→23:36)
[2019-08-02 07:11] LABS: Hematocrit 30.9 % (36-46); Hemoglobin 10.6 g/dL (12.0-16.0)
--- NOTE | 2019-08-02 07:50 | PM.PNPO.1 ---
Subjective Subjective Date Patient Seen: 08/02/19 Time Patient Seen: 07:50 Interval history: POD #1 s/p RTHAZEL w Dr. Duval. No acute events overnight. Patient complains of minimal pain in right hip. Has not mobilized with PT. Voiding without difficulty or assistance. Denies fever, chills, chest pain, shortness of breath, pain in calves. Exam Vital Signs (past 8 hours): - 08/01/19 23:55 08/02/19 01:46 08/02/19 01:49 Temperature 97.7 F Pulse Rate 84 Respiratory Rate 16 Blood Pressure 118/66 Pulse Oximetry 95 87 L 94 08/02/19 04:40 Temperature 97.7 F Pulse Rate 84 Respiratory Rate 16 Blood Pressure 125/66 Pulse Oximetry 93 Oxygen Delivery Method CPAP Oxygen Flow Rate 0 Narrative Exam Narrative: 64 year old female is lying in bed in no apparent distress. A&Ox3. Dressing CDI, SCDs in place. Sensory function grossly intact to light touch in LE BL. Dorsalis pedis 2+ BL. Able to actively dorsiflex/plantar flex BL. Calves warm, soft, compressible, non tender to palpation. Objective Labs Result Diagrams: 08/02/19 06:38 Labs: Laboratory Results - last 24 hr 08/02/19 06:38 Hgb 10.6 L Hct 30.9 L Assessment & Plan Post-op Postoperative Procedures: Procedures Operation Date: 08/01/19 11:45 Actual Procedures Side Surgeon p Total Hip Arthroplasty Right Mike Duval MD Postoperative day: 1 Postoperative plan narrative: Mobilize with PT Continue current pain management Continue Lovenox and SCDs for DVT prophylaxis Discharge home likely in next 24-48 hours Time Spent With Patient Time with patient: less than 15 minutes
[2019-08-02] MEDS: DULOXETINE 30 MG CAPSULE 60 MG PO ×2 (08:58→20:57)
[2019-08-02] MEDS: ENOXAPARIN 40 MG/0.4 ML SYRINGE SUBCUT (08:59)
[2019-08-02] MEDS: METFORMIN HCL 500 MG TABLET PO (08:59)
[2019-08-02] MEDS: LOSARTAN 50 MG TABLET 100 MG PO (08:59)
[2019-08-02] MEDS: PANTOPRAZOLE 20 MG TABLET PO (08:59)
[2019-08-02] MEDS: GABAPENTIN 300 MG CAPSULE PO (08:59)
[2019-08-02] MEDS: hydrOXYzine pamoate 25 MG CAPSULE PO (10:12)
--- NOTE | 2019-08-02 10:29 | PT.IIE ---
Current Diagnoses Unilateral primary osteoarthritis, right hip (08/01/19) Surgery Performed Operation Date: 08/01/19 11:45 Actual Procedures p Total Hip Arthroplasty(Right) - Mike Duval MD Surgical History (Last Updated 07/19/19 @ 10:58 by Tessa Terry RN) History of arthroplasty of right knee (Acute 10/03/18) History of arthroscopy of both knees (Acute) History of hysterectomy (Acute) History of lumbar surgery (Acute) History of total left hip arthroplasty (Acute ~2014) Hx of tonsillectomy (Acute) S/P left rotator cuff repair (Acute) Medical History (Last Updated 07/19/19 @ 12:40 by Tessa Terry RN) HLD (hyperlipidemia) (Acute) HTN (hypertension) (Acute) Knee tumor (Acute) Narcotic-induced respiratory depression (Acute 10/03/18) Pre-diabetes (Acute) Sleep apnea with use of continuous positive airway pressure (CPAP) (Acute) Physical Therapy Inpatient Evaluation/Re-Eval M1 PT/OT-IP Prior Functional Status Start: 08/02/19 12:15 Freq: NEEDED Status: Active Protocol: Document 08/02/19 10:29 AB (Rec: 08/02/19 12:43 AB [id number]) Medical Review Prior Functional Status Medical History Reviewed Yes Communication able to make needs known Mobility and Gait pt stated that she is independent with all mobilities and ambulation without AD Social History Household Members spouse Living Arrangements Mobile home Number of Floors (Floors) One Floor Number of Stairs To Enter/Railing? 4 steps to enter with wide bilateral rails and can only hold on to one rail at a time Home Environment High Toilet,Walk in Shower Home Equipment Front Wheel Walker,Four Wheel Walker,Straight Cane,Grab Bars In Shower M2 PT-IP Current Condition Start: 08/02/19 12:15 Freq: NEEDED Status: Active Protocol: Document 08/02/19 10:29 AB (Rec: 08/02/19 12:43 AB [id number]) Physical Therapy Current Condition Current Condition Evaluation Date 08/02/19 Treatment Diagnosis s/p R CARMEN posterior approach; difficulty in walking Onset Date 08/01/2019 Precautions Posterior Hip Precautions No Hip Flexion > 90 degrees,No Hip Internal Rotation,No Hip Adduction Weight Bearing Status Weight Bearing Status Weight Bear as Tolerated Allowed Weight Bearing Amount (enter % RLE WBAT or #) (%) M3 PT-IP Subjective Start: 08/02/19 12:15 Freq: NEEDED Status: Active Protocol: Document 08/02/19 10:29 AB (Rec: 08/02/19 12:43 AB [id number]) Subjective Physical Therapy Visit Type Type Initial Evaluation Visit Start Time 10:29 Visit Stop Time 11:06 Total Visit Minutes 37 Number of SAMPLER FIRST Visits 0 Physical Therapy Visit Comments Patient Comments pt agreeable to do PT; requested to go back to bed afterwards Therapy Pain Assessment Pain When Pain Assessed At Rest Pain Present Pain Present Pain Reported Location Right Knee Intensity 8 Scale Used Numeric (1 - 10) Pain Management Techniques Apply Cold,Re-positioning, Timing of Activity with Medications M4 PT-IP Mobility and Gait Start: 08/02/19 12:15 Freq: NEEDED Status: Active Protocol: Document 08/02/19 10:29 AB (Rec: 08/02/19 12:43 AB [id number]) PT-Bed Mobility Assessment Sit to Supine Sit to Supine Moderate Assistance,1 Person Assistance PT-Transfer Assessment Sit to and From Stand Sit to and from Stand Minimal Assistance,1 Person Assistance,Use of Upper Extremities Equipment Transfer Assistive Device Gait Belt,Front Wheeled Walker Orthotic/Prosthetic Devices or Brace: No Transfers Transfer Destination Bed Transfer Technique ambulated using FWW Transfer Ability Level of Assist Minimal Assistance,1 Person Assistance,Use of Upper Extremities Comments Mobility Comments pt sitting on chair and agreed to do PT but requested to go back t bed afterwards. educted pt on hip precautions. completed sit to stand from the chair min A and cues to maintain hip precautions. pt ambulated in room using FWW ~ 30 ft with min A and cues. ambulated back to bed. completed sit to supine mod A with LE elevation to the bed. positioned pt on the bed. call light and table placed within reach. Gait Assessment Gait Gait Assistance Required: Minimum Assistance,1 Person Assist Distance (Feet) 30 Able to Maintain Weight Bearing Status Yes During Gait Assistive Devices Assistive Device Gait Belt,Front Wheeled Walker Orthotic/Prosthetic Devices or Brace: No Gait Deviations General Gait Pattern Antalgic,Decreased Stride Length,Decreased Feet Clearance,Step-to Gait Factors Limiting Gait Function Factors Limiting Gait Function Decreased Activity Tolerance, Decreased Strength,Limited Range of Motion,Pain,Poor Balance,Poor Safety Awareness PT-Balance Assessment Sitting Balance and Reactions Static Sitting Balance Ability Good Dynamic Sitting Balance Ability Good Standing Balance and Reactions Static Standing Balance Ability Fair Dynamic Standing Balance Ability Fair Device Used FWW M5 PT-IP Objective Assessments Start: 08/02/19 12:15 Freq: NEEDED Status: Active Protocol: Document 08/02/19 10:29 AB (Rec: 08/02/19 12:43 AB [id number]) Orientation Orientation/Cognition Level of Alertness Alert Orientation Name,Age,Place,Situation Language Function Ability No Deficits Noted Safety Awareness Understands Safety Issues Memory Description Short Term Impaired Gross Range of Motion Lower Extremity ROM Assessment Within Functional Limits Strength Lower Extremity Strength Assessment Right Impaired Hip 3+/5 Knee 3+/5 Coordination Assessment Gross Coordination Gross Coordination WNL Sensation Assessment Sensation Gross Sensation WNL Muscle Tone Muscle Tone WNL Yes M6 PT-IP Treatment Start: 08/02/19 12:15 Freq: NEEDED Status: Active Protocol: Document 08/02/19 10:29 AB (Rec: 08/02/19 12:43 AB [id number]) Physical Therapy Treatment Exercises Exercises Heel Slides Education Education Provided Precautions,Weight Bearing Status,Post-Op Packet,Safety M7 PT-IP Assessment and Plan Start: 08/02/19 12:15 Freq: NEEDED Status: Active Protocol: Document 08/02/19 10:29 AB (Rec: 08/02/19 12:43 AB [id number]) PT Summary Assessment and Plan Potential Rehabilitation Potential Good Status of Condition at Evaluation Evolving Summary Impairments Pain,ROM,Strength,Balance, Coordination,Sensation,Tone, Cognition,Bed Mobility, Transfers,Gait,Activity Tolerance Assessment Summary pt requiring mod A with bed mobility and min A with transfers and ambulation using FWW. pt stated that spouse will assist but is not sure how much he can assist her since he has his own medical issues. will conduct caregiver training when appropriate. will also complete stair training prior to d/c . pt stated that she is already set up for outpt PT. Goals Bed Mobility Goal Standby Assistance Transfer Goal Standby Assistance,Front Wheeled Walker Gait Goal Standby Assistance,Front Wheel Walker Gait Distance 150 Other Goals up/down 4 steps 1 rail SBA Days to Meet Goals 5 Frequency of Treatment Frequency Of Treatment Twice a Day Treatment Plan Physical Therapy Treatment Plan Bed Mobility Training,Transfer Training,Gait Training, Therapeutic Exercise,Balance Retraining,Post Op Education, Discharge Planning,Hot or Cold Pack,Neuromuscular Re-ed, Coordination Retraining,Manual Therapy Recommendations To Nursing Amount of Assist Needed 1 Person Assist Discharge Recommendations PT Discharge Recommendations Home with Assistance, Outpatient PT Transportation Needs at Discharge Private Vehicle
--- NOTE | 2019-08-02 14:09 | CM.IDA ---
Discharge Planning/Care Management CM Discharge Assessment Start: 08/02/19 14:04 Freq: Status: Active Protocol: Document 08/02/19 14:04 SHE (Rec: 08/02/19 14:09 SHE [id number]) Discharge Planning Assessment Assigned Dog License Officer Supervisor HENNA Cm DPOA/Assigned Designee Name Khurram Winters, spouse Contact Information [phone] Advance Directives? No History Provided By Patient,Family Member,Medical Record Prior Living Arrangements Mobile home Household Members spouse Independent with ADL's Yes Is patient alert and oriented? Yes Patient/Family Preference OP PT Therapy Barriers to Discharge No Comment Pt is POD#1 from hip surgery w / Dr Duval. Pt is SDC likely switch to observation this afternoon PCP: Annabel lAcaraz Payer: MARTHA/ JADE Reviewed chart and met w/pt this morning. Pt was a little groggy/tired after her PT session. Pt explained she is mostly indp at baseline but does require frequent rest breaks w/activity and has not been able to walk much distance. Pt feels her spouse will be able to assist her upon DC, dtr lives w/them currently but she often works. Likely no barriers to safe return home w /family to assist. Home Health may be helpful if recommended by therapy team although, thus far, PT is recoemmending home w/assist and outpt PT HENNA Mari Discharge Plan Home Transportation Arrangement Family Referrals Initiated None needed Review Status In Process
--- NOTE | 2019-08-02 15:58 | PC.NURSE ---
Dressing remains in place and intact today without drainage. Patient worked with P.T. and reports she did have some pain and difficulty during session. Patient reports pain is better improved with norco (as compared to less relief with dilaudid this morning). Voiding without difficulty, no BM this shift. Denies n/v or upset stomach, tolerating meals. Call light within reach.
--- NOTE | 2019-08-02 18:05 | PT.IPTN ---
Current Diagnoses Unilateral primary osteoarthritis, right hip (08/01/19) Surgery Performed Operation Date: 08/01/19 11:45 Actual Procedures p Total Hip Arthroplasty(Right) - Mike Duval MD Physical Therapy Treatment Note M2 PT-IP Current Condition Start: 08/02/19 12:15 Freq: NEEDED Status: Active Protocol: Document 08/02/19 10:29 AB (Rec: 08/02/19 12:43 AB [id number]) Physical Therapy Current Condition Current Condition Evaluation Date 08/02/19 Treatment Diagnosis s/p R CARMEN posterior approach; difficulty in walking Onset Date 08/01/2019 Precautions Posterior Hip Precautions No Hip Flexion > 90 degrees,No Hip Internal Rotation,No Hip Adduction Weight Bearing Status Weight Bearing Status Weight Bear as Tolerated Allowed Weight Bearing Amount (enter % RLE WBAT or #) (%) M3 PT-IP Subjective Start: 08/02/19 12:15 Freq: NEEDED Status: Active Protocol: Document 08/02/19 17:25 SP (Rec: 08/02/19 18:45 SP [email or web address]) Subjective Physical Therapy Visit Type Type Treatment Note Visit Start Time 17:25 Visit Stop Time 18:05 Total Visit Minutes 40 Number of GRAVEL TRUCK DRIVER Visits 1 Physical Therapy Visit Comments Patient Comments pt agreeable to PT and requested to go back afterwords. Therapy Pain Assessment Pain When Pain Assessed During Mobility Pain Present Pain Present Pain Reported Location Right Knee Intensity 7 Scale Used 7/10 at rest and mobility Pain Behaviors Facial Grimacing,Moaning, Restlessness Pain Management Techniques Apply Cold,Re-positioning, Timing of Activity with Medications M4 PT-IP Mobility and Gait Start: 08/02/19 12:15 Freq: NEEDED Status: Active Protocol: Document 08/02/19 17:25 SP (Rec: 08/02/19 18:45 SP [id number]) PT-Bed Mobility Assessment Supine to Sit Supine to Sit Minimal Assistance,1 Person Assistance,Head of Bed Elevated,Bedrails Sit to Supine Sit to Supine Moderate Assistance,1 Person Assistance,Bedrails Scooting Scooting to Edge of Bed Contact Guard Assistance PT-Transfer Assessment Sit to and From Stand Sit to and from Stand Minimal Assistance,Moderate Assistance,1 Person Assistance ,Use of Upper Extremities Equipment Transfer Assistive Device Gait Belt,Front Wheeled Walker Orthotic/Prosthetic Devices or Brace: No Transfers Transfer Destination Toilet Transfer Technique ambulated using FWW Transfer Ability Level of Assist Minimal Assistance,Moderate Assistance,1 Person Assistance ,Use of Upper Extremities Comments Mobility Comments Pt was laying in bed when arrived. supine <> sitting Mod A x1 for RLE repositioning to EOB with education for maintaining no IR and back into bed then patient was able to scoot to EOB and lateral scoot when back in bed herself with using BUE on bed rails and LLE WB into bed to bridge. Sit to stand Min from EOB with cuing for proper hand placement using FWW with good no trunk flexion >90 deg precautions and RLE out in front more than L. Pt ambulated to bathroom CGA using FWW, required Min A to sit on toilet and mod A to stand using R rail and L side of FWW (therapist stabilized) but will place commode over toilet next use for B arm rests for support and increased independence. Pt able to complete self hygiene with maintaining no > 90 deg hip precautions and LUE support on FWW, stable CGA. Pt maintained good standing balance CGA with FWW in front at sink to wash hands BLE even WB, stable. Pt was back in bed when came back from a walk , call light and allneeds inreach with in room when left. Gait Assessment Gait Gait Assistance Required: Contact Guard Assist,1 Person Assist Distance (Feet) 150 Able to Maintain Weight Bearing Status Yes During Gait Assistive Devices Assistive Device Gait Belt,Front Wheeled Walker Orthotic/Prosthetic Devices or Brace: No Gait Deviations General Gait Pattern Antalgic,Decreased Stride Length,Decreased Feet Clearance,Step-to Gait Factors Limiting Gait Function Factors Limiting Gait Function Decreased Activity Tolerance, Decreased Strength,Limited Range of Motion,Pain,Poor Balance,Poor Safety Awareness Comments Gait Comments Pt was able to walk using FWW CGA from R side of bed to toilet then to stairs and back approx 150ft with 2 stopped rests, initially step to gait then progressed to step over step, cuing required during R turns for maintaining no IR and perform RLE leading and small step pivoting. Stair Climbing Assessment Comments Stair Climbing Comments unable to assess stairs secondary to R hip pain and decreased strengthen and activity tolerance. Will assess at a later date. PT-Balance Assessment Sitting Balance and Reactions Static Sitting Balance Ability Good Dynamic Sitting Balance Ability Good Standing Balance and Reactions Static Standing Balance Ability Fair Dynamic Standing Balance Ability Fair Device Used FWW M5 PT-IP Objective Assessments Start: 08/02/19 12:15 Freq: NEEDED Status: Active Protocol: Document 08/02/19 10:29 AB (Rec: 08/02/19 12:43 AB [id number]) Orientation Orientation/Cognition Level of Alertness Alert Orientation Name,Age,Place,Situation Language Function Ability No Deficits Noted Safety Awareness Understands Safety Issues Memory Description Short Term Impaired Gross Range of Motion Lower Extremity ROM Assessment Within Functional Limits Strength Lower Extremity Strength Assessment Right Impaired Hip 3+/5 Knee 3+/5 Coordination Assessment Gross Coordination Gross Coordination WNL Sensation Assessment Sensation Gross Sensation WNL Muscle Tone Muscle Tone WNL Yes M6 PT-IP Treatment Start: 08/02/19 12:15 Freq: NEEDED Status: Active Protocol: Document 08/02/19 17:25 SP (Rec: 08/02/19 18:45 SP [id number]) Physical Therapy Treatment Exercises Exercises Ankle Pumps,Gluteal Sets,Quad Sets,Heel Slides Education Education Provided Precautions,Weight Bearing Status,Post-Op Packet,Safety Other Treatments Other Treatment Performed Pt was able to recall 3/3 R hip precautionsf for safety during mobility but required cuing during standing and R turns, no IR. M7 PT-IP Assessment and Plan Start: 08/02/19 12:15 Freq: NEEDED Status: Active Protocol: Document 08/02/19 17:25 SP (Rec: 08/02/19 18:45 SP [email or web address]) PT Summary Assessment and Plan Potential Rehabilitation Potential Good Status of Condition at Evaluation Evolving Summary Impairments Pain,ROM,Strength,Balance, Coordination,Sensation,Tone, Cognition,Bed Mobility, Transfers,Gait,Activity Tolerance Assessment Summary pt requiring mod A with bed mobility and min A with transfers from EOB and Mod from toilet (recommend use of commode over toilet, has one at home will place in bathroom for increased independence) and ambulation using FWW CGA. pt stated that spouse will assist but is not sure how much he can assist her since he has his own medical issues. will conduct caregiver training when appropriate. will also complete stair training prior to d/c . pt stated that she is already set up for outpt PT. Goals Bed Mobility Goal Standby Assistance Transfer Goal Standby Assistance,Front Wheeled Walker Gait Goal Standby Assistance,Front Wheel Walker Gait Distance 150 Other Goals up/down 4 steps 1 RHR rail, SPC LUE SBA Days to Meet Goals 5 Frequency of Treatment Frequency Of Treatment Twice a Day Treatment Plan Physical Therapy Treatment Plan Bed Mobility Training,Transfer Training,Gait Training, Therapeutic Exercise,Balance Retraining,Post Op Education, Discharge Planning,Hot or Cold Pack,Neuromuscular Re-ed, Coordination Retraining,Manual Therapy Other Recommendations and Next Treatment caregiver training 08/03 at [facility] 11am including bed mob, transfer and stair training 1 rail and SPC if progresses enough to go home with otherwise recommending SNF. Recommendations To Nursing Amount of Assist Needed Standby Assistance,1 Person Assist Discharge Recommendations PT Discharge Recommendations Home with Assistance,SNF Rehab ,Outpatient PT Transportation Needs at Discharge Private Vehicle
[2019-08-02] MEDS: GABAPENTIN 300 MG CAPSULE 600 MG PO (20:58)
[2019-08-02] MEDS: ATORVASTATIN 20 MG TABLET PO (20:58)
[2019-08-02] MEDS: ZOLPIDEM 5 MG TABLET PO (23:31)
[2019-08-03 00:50] VITALS: BP 115/61; PULSE 90; RESP 14; TEMP 37.2; O2SAT 92
[2019-08-03] MEDS: HYDROCODONE/ACET 5/325 TABLET 2 TAB PO ×5 (01:52→20:22)
[2019-08-03 04:40] VITALS: BP 104/53; PULSE 85; RESP 16; TEMP 37.2; O2SAT 93
[2019-08-03] MEDS: HYDROMORPHONE 2 MG TABLET PO (05:11)
[2019-08-03 09:00] VITALS: BP 120/49; PULSE 92; RESP 16; TEMP 36.4; O2SAT 95
[2019-08-03] MEDS: GABAPENTIN 300 MG CAPSULE PO (09:18)
[2019-08-03] MEDS: ENOXAPARIN 40 MG/0.4 ML SYRINGE SUBCUT (09:18)
[2019-08-03] MEDS: METFORMIN HCL 500 MG TABLET PO (09:19)
[2019-08-03] MEDS: DULOXETINE 30 MG CAPSULE 60 MG PO ×2 (09:19→20:24)
[2019-08-03] MEDS: PANTOPRAZOLE 20 MG TABLET PO (09:22)
--- NOTE | 2019-08-03 10:55 | PT.IPTN ---
Current Diagnoses Unilateral primary osteoarthritis, right hip (08/01/19) Surgery Performed Operation Date: 08/01/19 11:45 Actual Procedures p Total Hip Arthroplasty(Right) - Mike Duval MD Physical Therapy Treatment Note M2 PT-IP Current Condition Start: 08/02/19 12:15 Freq: NEEDED Status: Active Protocol: Document 08/02/19 10:29 AB (Rec: 08/02/19 12:43 AB [id number]) Physical Therapy Current Condition Current Condition Evaluation Date 08/02/19 Treatment Diagnosis s/p R CARMEN posterior approach; difficulty in walking Onset Date 08/01/2019 Precautions Posterior Hip Precautions No Hip Flexion > 90 degrees,No Hip Internal Rotation,No Hip Adduction Weight Bearing Status Weight Bearing Status Weight Bear as Tolerated Allowed Weight Bearing Amount (enter % RLE WBAT or #) (%) M3 PT-IP Subjective Start: 08/02/19 12:15 Freq: NEEDED Status: Active Protocol: Document 08/03/19 10:55 AB (Rec: 08/03/19 14:25 AB [id number]) Subjective Physical Therapy Visit Type Type Treatment Note Visit Start Time 10:55 Visit Stop Time 11:47 Total Visit Minutes 52 Number of PILATES INSTRUCTOR Visits 0 Physical Therapy Visit Comments Patient Comments pt agreeable to do PT. spouse present for training Therapy Pain Assessment Pain When Pain Assessed At Rest Pain Present Pain Present Pain Reported Location right hip Intensity 5 Scale Used increases to 8 with mobility M4 PT-IP Mobility and Gait Start: 08/02/19 12:15 Freq: NEEDED Status: Active Protocol: Document 08/03/19 10:55 AB (Rec: 08/03/19 14:25 AB [id number]) PT-Bed Mobility Assessment Supine to Sit Supine to Sit Moderate Assistance,1 Person Assistance PT-Transfer Assessment Sit to and From Stand Sit to and from Stand Minimal Assistance,Moderate Assistance,1 Person Assistance ,Use of Upper Extremities Equipment Transfer Assistive Device Gait Belt,Front Wheeled Walker Orthotic/Prosthetic Devices or Brace: No Transfers Transfer Destination Toilet Transfer Technique ambulated using FWW Transfer Ability Level of Assist Minimal Assistance,Moderate Assistance,1 Person Assistance ,Use of Upper Extremities Comments Mobility Comments pt completed supine to sit mod A. instructed spouse on how to assist pt and completed. educated spouse on how to use safety belt and how to assist pt. spouse was able to put safety belt on, assisted pt with sit to stand from bed mod to A and cues. pt ambulated to the toilet min A and cues. pt required min A and cues to maintain hip precautions for controlled descent on the toilet. pt. completed sit to stand from the toilet max A and max cues using grab bar for support. completed ambulation using FWW towards the sink CGA to min A and was able to maintain standing using FWW CGA while completing handwashing. pt tends to twist on RLE and cued for hip precautions. pt ambulated to the chair. educated on how to do sit <>stand and completed x 3 requiring CGA and cues for techniques. pt with heavy use of BUE on FWW during standing and walking. completed RLE stance for ~ 10 sec requiring min to mod A and pt using FWW for support. pt completed up/down step stool using FWW for support and pt required max A and max cues. pt c/o L knee pain during standing and stated that she is overworking her LLE. pt has 4 steps to get into the house with 1 rail and at this time, pt is not safe doing stairs. informed pt and spouse and agreed. informed PA and manager case and aware that pt is not ready to go home and recommending SNF rehab. Left pt sitting on chair. call light and table placed within reach. Gait Assessment Gait Gait Assistance Required: Contact Guard Assist,Minimum Assistance Distance (Feet) 20 Able to Maintain Weight Bearing Status Yes During Gait Assistive Devices Assistive Device Gait Belt,Front Wheeled Walker Orthotic/Prosthetic Devices or Brace: No Gait Deviations General Gait Pattern Antalgic,Decreased Stride Length,Decreased Feet Clearance,Step-to Gait Factors Limiting Gait Function Factors Limiting Gait Function Decreased Activity Tolerance, Decreased Strength,Limited Range of Motion,Pain,Poor Balance,Poor Safety Awareness Comments Gait Comments pls refer to mobility section for details M5 PT-IP Objective Assessments Start: 08/02/19 12:15 Freq: NEEDED Status: Active Protocol: Document 08/02/19 10:29 AB (Rec: 08/02/19 12:43 AB [id number]) Orientation Orientation/Cognition Level of Alertness Alert Orientation Name,Age,Place,Situation Language Function Ability No Deficits Noted Safety Awareness Understands Safety Issues Memory Description Short Term Impaired Gross Range of Motion Lower Extremity ROM Assessment Within Functional Limits Strength Lower Extremity Strength Assessment Right Impaired Hip 3+/5 Knee 3+/5 Coordination Assessment Gross Coordination Gross Coordination WNL Sensation Assessment Sensation Gross Sensation WNL Muscle Tone Muscle Tone WNL Yes M6 PT-IP Treatment Start: 08/02/19 12:15 Freq: NEEDED Status: Active Protocol: Document 08/03/19 10:55 AB (Rec: 08/03/19 14:25 AB [id number]) Physical Therapy Treatment Education Education Provided Precautions,Weight Bearing Status,Safety M7 PT-IP Assessment and Plan Start: 08/02/19 12:15 Freq: NEEDED Status: Active Protocol: Document 08/03/19 10:55 AB (Rec: 08/03/19 14:25 AB [id number]) PT Summary Assessment and Plan Potential Rehabilitation Potential Good Summary Impairments Pain,ROM,Strength,Balance, Coordination,Sensation,Tone, Cognition,Bed Mobility, Transfers,Gait,Activity Tolerance Progress Towards Goals Slow Progress due to Pain,Slow Progress due to Activity Tolerance Assessment Summary caregiver training initiated and more training required. pt has 4 steps to enter the house and pt at this time is not safe doing stairs. pt presents with heavy UE use on FWw for support during standing and ambulation. Pt will require SNF rehab at this time to improve strength and functional independent. Goals Bed Mobility Goal Standby Assistance Transfer Goal Standby Assistance,Front Wheeled Walker Gait Goal Standby Assistance,Front Wheel Walker Gait Distance 150 Other Goals up/down 4 steps 1 RHR rail, SPC LUE SBA Days to Meet Goals 5 Frequency of Treatment Frequency Of Treatment Twice a Day Treatment Plan Physical Therapy Treatment Plan Bed Mobility Training,Transfer Training,Gait Training, Therapeutic Exercise,Balance Retraining,Post Op Education, Discharge Planning,Hot or Cold Pack,Neuromuscular Re-ed, Coordination Retraining,Manual Therapy Other Recommendations and Next Treatment caregiver training, ambulation Focus , stair training when appropriate Recommendations To Nursing Amount of Assist Needed 1 Person Assist Discharge Recommendations PT Discharge Recommendations SNF Rehab Transportation Needs at Discharge Private Vehicle,Wheelchair/ Cabulance
--- NOTE | 2019-08-03 11:51 | P.PN_ITS ---
Subjective Subjective Date Patient Seen: 08/03/19 Time Patient Seen: 09:35 Interval history: POD #2 s/p RTHA w Dr. Duval. Patient complains of 8/10 pain in hip. Last night patient was given dilaudid 2mg PO and [place]. Mobilized with PT, 1 assist, home w help vs SNF. Voiding without difficulty or assistance Denies fever, chills, chest pain, shortness of breath. Exam Vital Signs (past 8 hours): - 08/03/19 04:40 08/03/19 09:00 Temperature 98.9 F 97.5 F L Pulse Rate 85 92 H Respiratory Rate 16 16 Blood Pressure 104/53 L 120/49 L Pulse Oximetry 93 95 Oxygen Delivery Method CPAP Oxygen Flow Rate 0 Narrative Exam Narrative: 64 year old female is laying comfortably in bed, drowsy, in no apparent distress. A&Ox3. Dressing CDI. SCDs in place. Sensory function grossly intact to light touch in LE BL. Able to actively dorsiflex/plantar flex BL. Dorsalis pedis 2+ BL. Calves warm, soft, compressible, non tender to palpation. Objective Labs Result Diagrams: 08/02/19 06:38 Assessment & Plan Post-op Postoperative Procedures: Procedures Operation Date: 08/01/19 11:45 Actual Procedures Side Surgeon p Total Hip Arthroplasty Right Mike Duval MD Postoperative plan narrative: Pain management - patient rates 8/10 pain, drowsy during assessment likely secondary to overmedication, stopped dilaudid, continue norco Continue SCDs for DVT prophylaxis Continue mobilizing with PT Possible discharge home today pending PT clearance for stairs Time Spent With Patient Time with patient: less than 15 minutes
[2019-08-03 13:00] VITALS: BP 150/73; PULSE 87; RESP 16; TEMP 36.3; O2SAT 93
--- NOTE | 2019-08-03 15:32 | PC.NURSE ---
SHIFT SUMMARY PATIENT DROWSY THIS AM, REQUESTING PAIN MEDICATION FOR 01/27 PAIN. HAD BEEN GETTING BOTH NORCO AND DILAUDID PO OVERNIGHT. CLARIFIED WITH ORTHO PA IF PATIENT IS MEANT TO BE GETTING BOTH MEDS. HE SAW PATIENT AND DC'D THE DILAUDID. PATIENT UP TO [facility] FOR LUNCH AFTER WORKING W/ PHYSICAL THERAPY. TEARFUL W03/29 REPORTED PAIN. GIVEN 2 NORCO AND PATIENT WAS ASSISTED BACK TO BED. ASKED OF HER PAIN LEVEL JUST PRIOR TO HER FALLING ASLEEP, DOWN TO 01/27, THEN PATIENT HAD A NAP FOR A COUPLE HRS AND WAS ALLOWED TO SLEEP.
[2019-08-03 17:00] VITALS: BP 136/69; PULSE 87; RESP 12; TEMP 36.8; O2SAT 93
--- NOTE | 2019-08-03 17:04 | PT.IPTN ---
Current Diagnoses Unilateral primary osteoarthritis, right hip (08/01/19) Surgery Performed Operation Date: 08/01/19 11:45 Actual Procedures p Total Hip Arthroplasty(Right) - Mike Duval MD Physical Therapy Treatment Note M2 PT-IP Current Condition Start: 08/02/19 12:15 Freq: NEEDED Status: Active Protocol: Document 08/02/19 10:29 AB (Rec: 08/02/19 12:43 AB [id number]) Physical Therapy Current Condition Current Condition Evaluation Date 08/02/19 Treatment Diagnosis s/p R CARMEN posterior approach; difficulty in walking Onset Date 08/01/2019 Precautions Posterior Hip Precautions No Hip Flexion > 90 degrees,No Hip Internal Rotation,No Hip Adduction Weight Bearing Status Weight Bearing Status Weight Bear as Tolerated Allowed Weight Bearing Amount (enter % RLE WBAT or #) (%) M3 PT-IP Subjective Start: 08/02/19 12:15 Freq: NEEDED Status: Active Protocol: Document 08/03/19 17:04 AB (Rec: 08/03/19 18:16 AB [id number]) Subjective Physical Therapy Visit Type Type Treatment Note Visit Start Time 17:04 Visit Stop Time 17:31 Total Visit Minutes 27 Number of AEROSPACE [employer]ODU[employer] SALES ENGINEER Visits 0 Physical Therapy Visit Comments Patient Comments pt agreeable to do PT Therapy Pain Assessment Pain When Pain Assessed At Rest Pain Present Pain Present Pain Reported Location right hip Intensity 7 Pain Management Techniques Apply Cold,Re-positioning, Timing of Activity with Medications M4 PT-IP Mobility and Gait Start: 08/02/19 12:15 Freq: NEEDED Status: Active Protocol: Document 08/03/19 17:04 AB (Rec: 08/03/19 18:16 AB [id number]) PT-Bed Mobility Assessment Supine to Sit Supine to Sit Moderate Assistance,Maximum Assistance,1 Person Assistance PT-Transfer Assessment Sit to and From Stand Sit to and from Stand Minimal Assistance,Moderate Assistance,1 Person Assistance ,Use of Upper Extremities Equipment Transfer Assistive Device Bed Rail,Front Wheeled Walker Orthotic/Prosthetic Devices or Brace: No Transfers Transfer Destination Chair Transfer Technique ambulated using FWW Transfer Ability Level of Assist Contact Guard Assistance, Minimal Assistance,1 Person Assistance,Use of Upper Extremities Comments Mobility Comments pt supine in bed and agreeable to do PT. completed supine to sit mod to max A and max cues. completed sit to stand from EOB mod A and cues. ambulated in room using FWW ~ 30 ft CGA to min A. sit <> stand training from EOB and bench and pt requires mod to max A and max cues for techniques and safety. pt sat up on chair and set up for dinner. call light and table placed within reach. Gait Assessment Gait Gait Assistance Required: Contact Guard Assist,Minimum Assistance Distance (Feet) 30 Able to Maintain Weight Bearing Status Yes During Gait Assistive Devices Assistive Device Gait Belt,Front Wheeled Walker Orthotic/Prosthetic Devices or Brace: No Gait Deviations General Gait Pattern Antalgic,Decreased Stride Length,Decreased Feet Clearance,Step-to Gait Factors Limiting Gait Function Factors Limiting Gait Function Decreased Activity Tolerance, Decreased Strength,Limited Range of Motion,Pain,Poor Balance,Poor Safety Awareness Comments Gait Comments pls refer to mobility section for details M5 PT-IP Objective Assessments Start: 08/02/19 12:15 Freq: NEEDED Status: Active Protocol: Document 08/02/19 10:29 AB (Rec: 08/02/19 12:43 AB [id number]) Orientation Orientation/Cognition Level of Alertness Alert Orientation Name,Age,Place,Situation Language Function Ability No Deficits Noted Safety Awareness Understands Safety Issues Memory Description Short Term Impaired Gross Range of Motion Lower Extremity ROM Assessment Within Functional Limits Strength Lower Extremity Strength Assessment Right Impaired Hip 3+/5 Knee 3+/5 Coordination Assessment Gross Coordination Gross Coordination WNL Sensation Assessment Sensation Gross Sensation WNL Muscle Tone Muscle Tone WNL Yes M6 PT-IP Treatment Start: 08/02/19 12:15 Freq: NEEDED Status: Active Protocol: Document 08/03/19 17:04 AB (Rec: 08/03/19 18:16 AB [id number]) Physical Therapy Treatment Education Education Provided Precautions,Safety M7 PT-IP Assessment and Plan Start: 08/02/19 12:15 Freq: NEEDED Status: Active Protocol: Document 08/03/19 17:04 AB (Rec: 08/03/19 18:16 AB [id number]) PT Summary Assessment and Plan Potential Rehabilitation Potential Good Summary Impairments Pain,ROM,Strength,Balance, Coordination,Sensation,Tone, Cognition,Bed Mobility, Transfers,Gait,Activity Tolerance Progress Towards Goals Slow Progress due to Pain Assessment Summary pt continues to c/o increase pain affecting mobility level. stated that RLE feels longer than LLE and hard to straighten. pt continues to rely a lot on BUE for support on FWW and is not appropriate for stair training at this time. will conduct further caregiver trianing when appropriate. pt at this time will require SNF rehab. Goals Bed Mobility Goal Standby Assistance Transfer Goal Standby Assistance,Front Wheeled Walker Gait Goal Standby Assistance,Front Wheel Walker Gait Distance 150 Other Goals up/down 4 steps 1 RHR rail, SPC LUE SBA Days to Meet Goals 5 Frequency of Treatment Frequency Of Treatment Twice a Day Treatment Plan Physical Therapy Treatment Plan Bed Mobility Training,Transfer Training,Gait Training, Therapeutic Exercise,Balance Retraining,Post Op Education, Discharge Planning,Hot or Cold Pack,Neuromuscular Re-ed, Coordination Retraining,Manual Therapy Other Recommendations and Next Treatment caregiver training, ambulation Focus , stair training when appropriate Recommendations To Nursing Amount of Assist Needed 1 Person Assist Discharge Recommendations PT Discharge Recommendations SNF Rehab Transportation Needs at Discharge Private Vehicle,Wheelchair/ Cabulance
--- NOTE | 2019-08-03 17:51 | PC.NURSE ---
Addendum entered by Tatiana Hidalgo R.N. 08/03/19 19:54: I.S. provided and teaching completed. Pt able to use to > 1999. Original Note: Pt lying quietly in bed and has requested pain meds as per VP COMMUNICATIONS. Pt reports just returned from bathroom and pain to right hip increases with movement/activity. Administered meds as per emar. Applied ice to right thigh which is edematous. Ice in place to right hip as well. Bulky surgical dressing intact to right hip. BL calf scd's in place. Palpable pedal pulses BL. P.T. mobilizes pt to chair for evening meal.
[2019-08-03 20:05] VITALS: PULSE 86; RESP 20; TEMP 37.7; O2SAT 95
[2019-08-03] MEDS: ATORVASTATIN 20 MG TABLET PO (20:23)
[2019-08-03] MEDS: SODIUM CHLORIDE 0.9% FLUSH 10 ML IV (20:24)
[2019-08-03] MEDS: GABAPENTIN 300 MG CAPSULE 600 MG PO (20:24)
[2019-08-03] MEDS: ZOLPIDEM 5 MG TABLET PO (22:37)
[2019-08-04 00:05] VITALS: BP 134/72; PULSE 89; RESP 14; TEMP 36.6; O2SAT 93
[2019-08-04] MEDS: HYDROCODONE/ACET 5/325 TABLET 2 TAB PO ×4 (02:26→13:55)
[2019-08-04 04:05] VITALS: BP 132/70; PULSE 84; RESP 16; TEMP 36.6; O2SAT 95
[2019-08-04 08:00] VITALS: BP 129/76; PULSE 87; RESP 18; TEMP 36.2; O2SAT 95
[2019-08-04] MEDS: METFORMIN HCL 500 MG TABLET PO (08:25)
[2019-08-04] MEDS: DULOXETINE 30 MG CAPSULE 60 MG PO (08:25)
[2019-08-04] MEDS: PANTOPRAZOLE 20 MG TABLET PO (08:26)
[2019-08-04] MEDS: SODIUM CHLORIDE 0.9% FLUSH 10 ML IV (08:26)
[2019-08-04] MEDS: ENOXAPARIN 40 MG/0.4 ML SYRINGE SUBCUT (08:26)
[2019-08-04] MEDS: GABAPENTIN 300 MG CAPSULE PO (08:26)
--- NOTE | 2019-08-04 10:04 | PT.IPTN ---
Current Diagnoses Unilateral primary osteoarthritis, right hip (08/01/19) Surgery Performed Operation Date: 08/01/19 11:45 Actual Procedures p Total Hip Arthroplasty(Right) - Mike Duval MD Physical Therapy Treatment Note M2 PT-IP Current Condition Start: 08/02/19 12:15 Freq: NEEDED Status: Active Protocol: Document 08/02/19 10:29 AB (Rec: 08/02/19 12:43 AB [id number]) Physical Therapy Current Condition Current Condition Evaluation Date 08/02/19 Treatment Diagnosis s/p R CARMEN posterior approach; difficulty in walking Onset Date 08/01/2019 Precautions Posterior Hip Precautions No Hip Flexion > 90 degrees,No Hip Internal Rotation,No Hip Adduction Weight Bearing Status Weight Bearing Status Weight Bear as Tolerated Allowed Weight Bearing Amount (enter % RLE WBAT or #) (%) M3 PT-IP Subjective Start: 08/02/19 12:15 Freq: NEEDED Status: Active Protocol: Document 08/04/19 10:04 AB (Rec: 08/04/19 12:48 AB [id number]) Subjective Physical Therapy Visit Type Type Treatment Note Visit Start Time 10:04 Visit Stop Time 11:02 Total Visit Minutes 58 Number of INSOLE CEMENTER Visits 0 Physical Therapy Visit Comments Patient Comments pt agreeable to do PT Therapy Pain Assessment Pain When Pain Assessed At Rest Pain Present Pain Present Pain Reported Location Left Knee Scale Used pain scale not stated but with (+) crepitus right hip Intensity 4 Scale Used increases to 8/10 with mobility M4 PT-IP Mobility and Gait Start: 08/02/19 12:15 Freq: NEEDED Status: Active Protocol: Document 08/04/19 10:04 AB (Rec: 08/04/19 12:48 AB [id number]) PT-Bed Mobility Assessment Supine to Sit Supine to Sit Minimal Assistance,1 Person Assistance PT-Transfer Assessment Sit to and From Stand Sit to and from Stand Contact Guard Assistance, Minimal Assistance,1 Person Assistance,Use of Upper Extremities Equipment Transfer Assistive Device Gait Belt,Front Wheeled Walker Orthotic/Prosthetic Devices or Brace: No Transfers Transfer Destination Toilet Transfer Technique ambulated using FWW Transfer Ability Level of Assist Contact Guard Assistance, Minimal Assistance,1 Person Assistance,Use of Upper Extremities Comments Mobility Comments pt completed supine to sit min A with RLE mobility. pt completed sit to stand from EOB CGA to min A and cues and ambulated to the toilet using FWW CGA to min A. completed sit to stand from the toilet using grab bar min A and cues. ambulated to the sink CGA to min A using FWW. pt sat on the EOB and rested. pt completed up/down step stool max A and cues x 2 reps. Assisted pt with putting shoes on. educated on stair climbing holding 1 rail with B hands and completed requiring max A and max cues. (+) L knee crepitus. Assisted pt back to the room. unable to do caregiver training for stair as pt is c/o L knee pain and is tired. will attempt in the afternoon. pt ambulated back to the chair from the w/c uisng FWW with spouse assisting. positioned pt on the chair. call light and table placed within reach. Gait Assessment Gait Gait Assistance Required: Contact Guard Assist,Minimum Assistance,1 Person Assist Distance (Feet) 50 Able to Maintain Weight Bearing Status Yes During Gait Assistive Devices Assistive Device Gait Belt,Front Wheeled Walker Orthotic/Prosthetic Devices or Brace: No Gait Deviations General Gait Pattern Antalgic,Decreased Stride Length,Decreased Feet Clearance,Step-to Gait Factors Limiting Gait Function Factors Limiting Gait Function Decreased Activity Tolerance, Decreased Strength,Limited Range of Motion,Pain,Poor Balance,Poor Safety Awareness Stair Climbing Assessment Evaluation Level of Assist On Stairs Maximal Assistance,1 Person Assistance Devices Stair Climbing Assistive Devices Right Railing Technique/Endurance Stair Climbing Direction Ascend and Descend Stair Climbing Technique Step to Step Number of Steps Climbed 4 Stair Climbing Set # Repetitions (reps) 1 M5 PT-IP Objective Assessments Start: 08/02/19 12:15 Freq: NEEDED Status: Active Protocol: Document 08/02/19 10:29 AB (Rec: 08/02/19 12:43 AB [id number]) Orientation Orientation/Cognition Level of Alertness Alert Orientation Name,Age,Place,Situation Language Function Ability No Deficits Noted Safety Awareness Understands Safety Issues Memory Description Short Term Impaired Gross Range of Motion Lower Extremity ROM Assessment Within Functional Limits Strength Lower Extremity Strength Assessment Right Impaired Hip 3+/5 Knee 3+/5 Coordination Assessment Gross Coordination Gross Coordination WNL Sensation Assessment Sensation Gross Sensation WNL Muscle Tone Muscle Tone WNL Yes M6 PT-IP Treatment Start: 02/13/20 12:15 Freq: NEEDED Status: Active Protocol: Document 08/04/19 10:04 AB (Rec: 08/04/19 12:48 AB [id number]) Physical Therapy Treatment Education Education Provided Precautions,Weight Bearing Status,Safety M7 PT-IP Assessment and Plan Start: 08/02/19 12:15 Freq: NEEDED Status: Active Protocol: Document 08/04/19 10:04 AB (Rec: 08/04/19 12:48 AB [id number]) PT Summary Assessment and Plan Potential Rehabilitation Potential Good Summary Impairments Pain,ROM,Strength,Balance, Coordination,Sensation,Bed Mobility,Transfers,Gait, Activity Tolerance Progress Towards Goals Slow Progress due to Pain,Slow Progress due to Medical Issues,Slow Progress due to Activity Tolerance Assessment Summary pt improving slowly with mobility. requires max A with stair climbing with max cues for safety. pt s/p R CARMEN with c/o increase pain with mobility but also c/o pain on L knee and presents with (+) crepitus affecting level of assistance. ortho PA will d/c pt today and informed regarding pt's mobility level and inability to do stairs safely and stated that pt just have to do it slowly. informed case packer and sealer regarding mobility concerns and safety. will conduct caregiver training next tx session. Goals Bed Mobility Goal Standby Assistance Transfer Goal Standby Assistance,Front Wheeled Walker Gait Goal Standby Assistance,Front Wheel Walker Gait Distance 150 Other Goals up/down 4 steps 1 rail Days to Meet Goals 5 Frequency of Treatment Frequency Of Treatment Twice a Day Treatment Plan Physical Therapy Treatment Plan Bed Mobility Training,Transfer Training,Gait Training, Therapeutic Exercise,Balance Retraining,Post Op Education, Discharge Planning,Hot or Cold Pack,Neuromuscular Re-ed, Coordination Retraining,Manual Therapy Other Recommendations and Next Treatment caregiver training, ambulation Focus , stair training when appropriate Recommendations To Nursing Amount of Assist Needed 1 Person Assist Discharge Recommendations PT Discharge Recommendations SNF Rehab Transportation Needs at Discharge Private Vehicle,Wheelchair/ Cabulance
--- NOTE | 2019-08-04 10:13 | P.DS_ITS ---
History of Present Illness History of Present Illness Date Patient Seen: 08/04/19 Time Patient Seen: 10:13 Chief complaint: [id number] Narrative: Patient is an 64-year-old female with severe right hip DJD. The patient has pain with activities and at rest, limited ambulation and activity tolerance, difficulties with ADLs, and failure of conservative treatment. We have discussed the nature of condition, treatment options, risks and benefits, and patient elects to proceed with total hip arthroplasty and gives informed consent. Discharge Providers Provider Date of admission: 08/01/19 10:03 Primary care physician: Annabel Alcaraz PA-C Consults: 08/01/19 15:38 Consult to Discharge Planning Routine Comment: Consult to Physical Therapy Evaluate & Treat Comment: Physician Instructions: post op CARMEN protocol Consult to Respiratory Therapy Evaluate & Treat Comment: Physician Instructions: Evaluate and treat Discharge provider: Phyllis Marrero PA-C Summary Hospital Course Discharge Diagnosis: s/p CARMEN Hospital Course: Joyce was admitted for CARMEN with Dr. Duval. Exam Vital Signs (past 8 hours): - 08/04/19 04:05 08/04/19 08:00 Temperature 97.8 F 97.2 F L Pulse Rate 84 87 Respiratory Rate 16 18 Blood Pressure 132/70 129/76 Pulse Oximetry 95 95 Oxygen Delivery Method Room Air,CPAP Oxygen Flow Rate 0 Objective Labs Result Diagrams: 08/02/19 06:38 Discharge Plan Discharge Plan Patient Disposition: Home Discharge orders & Medications Prescriptions: New hydrocodone-acetaminophen [[place]] 5-325 mg tablet 1 tab PO Q4-6H PRN (Reason: pain, severe) Qty: 20 RF: 0 enoxaparin [Lovenox] 40 mg/0.4 mL syringe 40 mg SUBCUT DAILY 6 Days Qty: 2.4 RF: 0 Continued metformin 500 mg Tablet 500 mg PO QAM RF: 0 pantoprazole 20 mg Tablet,Delayed Release (Dr/Ec) 20 mg PO DAILY RF: 0 gabapentin 300 mg Capsule 300 mg PO SEEINSTR RF: 0 hydrochlorothiazide 25 mg Tablet 25 mg PO DAILY RF: 0 losartan 100 mg Tablet 100 mg PO DAILY RF: 0 duloxetine 60 mg Capsule,Delayed Release(Dr/Ec) 60 mg PO BID RF: 0 atorvastatin 20 mg Tablet 20 mg PO BEDTIME RF: 0 zolpidem 5 mg Tablet 5 mg PO BEDTIME RF: 0 Discontinued hydrocodone-acetaminophen 5-325 mg Tablet 1 tab PO TID RF: 0 Follow up/Referrals: Annabel Alcaraz PA-C [Primary Care Provider] - Mike Duval MD [Physician] - Diet/Activity/Treatments Diet: Carb-consistent/Diabetic Activity: follow total hip arthroplasty precautions Cold/Heat Therapy: continue cold therapy as needed Skin/Wound/Dressing Care Report to your healthcare provider any signs of infection, such as:: chills, fever, increased pain, unusual drainage and unusual redness Dressing: keep dressing dry. if saturated, contact office for dressing change Visit Report/Discharge Packet Instructions: DI for Hip Replacement, DI for Prescription Opioid Use Stand Alone Forms: Surgery Discharge Discharge Data Primary Care Provider: Annabel Alcaraz
--- NOTE | 2019-08-04 11:25 | PM.PNPO.1 ---
Subjective Subjective Date Patient Seen: 08/04/19 Time Patient Seen: 11:25 Interval history: POD #[address] Duval. Patient has been slow to mobilize. She lives at home with her and he has been here for caregiver training. Exam Vital Signs (past 8 hours): - 08/04/19 04:05 08/04/19 08:00 Temperature 97.8 F 97.2 F L Pulse Rate 84 87 Respiratory Rate 16 18 Blood Pressure 132/70 129/76 Pulse Oximetry 95 95 Oxygen Delivery Method Room Air Oxygen Flow Rate 0 Narrative Exam Narrative: Patient lying in bed in no acute distress. She is alert and oriented x3. Calves are soft, compressible, nontender bilaterally. She is able to actively dorsiflex and plantar flex. Sensation intact light touch throughout bilateral lower extremities. Dressing on hip is CDI. Objective Labs Result Diagrams: 08/02/19 06:38 Assessment & Plan Post-op Postoperative Procedures: Procedures Operation Date: 08/01/19 11:45 Actual Procedures Side Surgeon p Total Hip Arthroplasty Right Mike Duval MD Patient will continue to mobilize with physical therapy today. Posterior hip precautions. Recommending patient go home with home health services. She mobilizes very well but is having difficulty with stairs. She only has 4 stairs at home. Will change dressing to Aquacel today. Continue Lovenox for DVT prophylaxis. She can discharge home today with home health services.
[2019-08-04 11:48] VITALS: BP 129/68; PULSE 88; RESP 16; TEMP 36.9; O2SAT 95
--- NOTE | 2019-08-04 14:17 | PT.IPTN ---
Current Diagnoses Unilateral primary osteoarthritis, right hip (08/01/19) Surgery Performed Operation Date: 08/01/19 11:45 Actual Procedures p Total Hip Arthroplasty(Right) - Mike Duval MD Physical Therapy Treatment Note M2 PT-IP Current Condition Start: 08/02/19 12:15 Freq: NEEDED Status: Active Protocol: Document 08/02/19 10:29 AB (Rec: 08/02/19 12:43 AB [id number]) Physical Therapy Current Condition Current Condition Evaluation Date 08/02/19 Treatment Diagnosis s/p R CARMEN posterior approach; difficulty in walking Onset Date 08/01/2019 Precautions Posterior Hip Precautions No Hip Flexion > 90 degrees,No Hip Internal Rotation,No Hip Adduction Weight Bearing Status Weight Bearing Status Weight Bear as Tolerated Allowed Weight Bearing Amount (enter % RLE WBAT or #) (%) M3 PT-IP Subjective Start: 08/02/19 12:15 Freq: NEEDED Status: Active Protocol: Document 08/04/19 14:17 AB (Rec: 08/04/19 16:41 AB [id number]) Subjective Physical Therapy Visit Type Type Treatment Note Visit Start Time 14:17 Visit Stop Time 14:56 Total Visit Minutes 39 Number of INDOOR LANDSCAPE ARCHITECT Visits 0 Physical Therapy Visit Comments Patient Comments pt agreeable to do PT Therapy Pain Assessment Pain When Pain Assessed At Rest Pain Present Pain Present Pain Reported Location right hip Intensity 7 Scale Used Numeric (1 - 10) Pain Management Techniques Re-positioning,Timing of Activity with Medications M4 PT-IP Mobility and Gait Start: 08/02/19 12:15 Freq: NEEDED Status: Active Protocol: Document 08/04/19 14:17 AB (Rec: 08/04/19 16:41 AB [id number]) PT-Bed Mobility Assessment Supine to Sit Supine to Sit Minimal Assistance,1 Person Assistance Sit to Supine Sit to Supine Minimal Assistance,1 Person Assistance PT-Transfer Assessment Sit to and From Stand Sit to and from Stand Contact Guard Assistance,1 Person Assistance,Use of Upper Extremities Equipment Transfer Assistive Device Gait Belt,Front Wheeled Walker Orthotic/Prosthetic Devices or Brace: No Transfers Transfer Destination Toilet Transfer Technique ambulation using FWW Transfer Ability Level of Assist 1 Person Assistance,Use of Upper Extremities Comments Mobility Comments caregiver training conducted. spouse was able to put safety belt on pt. spouse was able to assist pt with transfers and ambulation using FWW. requires cues for cueing pt and how to assist. pt's daughter in room and also cues pt and pt's spouse. pt's daughter stated that she will be going home with them today but will not stay with them but will assist them initially . Gait Assessment Gait Gait Assistance Required: Contact Guard Assist,Minimum Assistance Distance (Feet) 50 Able to Maintain Weight Bearing Status Yes During Gait Assistive Devices Assistive Device Gait Belt,Front Wheeled Walker Orthotic/Prosthetic Devices or Brace: No Gait Deviations General Gait Pattern Antalgic,Decreased Stride Length,Decreased Feet Clearance,Step-to Gait Factors Limiting Gait Function Factors Limiting Gait Function Decreased Activity Tolerance, Decreased Strength,Limited Range of Motion,Pain,Poor Balance,Poor Safety Awareness Stair Climbing Assessment Evaluation Level of Assist On Stairs Moderate Assistance,Maximal Assistance,1 Person Assistance Devices Stair Climbing Assistive Devices Right Railing Technique/Endurance Stair Climbing Direction Ascend and Descend Stair Climbing Technique Step to Step Number of Steps Climbed 3 Stair Climbing Set # Repetitions (reps) 1 Comments Stair Climbing Comments educated spouse on how to assist pt and cue pt appropriately. spouse was able to assist pt with stairs. M5 PT-IP Objective Assessments Start: 08/02/19 12:15 Freq: NEEDED Status: Active Protocol: Document 08/02/19 10:29 AB (Rec: 08/02/19 12:43 AB [id number]) Orientation Orientation/Cognition Level of Alertness Alert Orientation Name,Age,Place,Situation Language Function Ability No Deficits Noted Safety Awareness Understands Safety Issues Memory Description Short Term Impaired Gross Range of Motion Lower Extremity ROM Assessment Within Functional Limits Strength Lower Extremity Strength Assessment Right Impaired Hip 3+/5 Knee 3+/5 Coordination Assessment Gross Coordination Gross Coordination WNL Sensation Assessment Sensation Gross Sensation WNL Muscle Tone Muscle Tone WNL Yes M6 PT-IP Treatment Start: 08/02/19 12:15 Freq: NEEDED Status: Active Protocol: Document 08/04/19 14:17 AB (Rec: 08/04/19 16:41 AB [id number]) Physical Therapy Treatment Education Education Provided Precautions,Weight Bearing Status,Post-Op Packet,Safety M7 PT-IP Assessment and Plan Start: 08/02/19 12:15 Freq: NEEDED Status: Active Protocol: Document 08/04/19 14:17 AB (Rec: 02/15/20 16:41 AB [id number]) PT Summary Assessment and Plan Potential Rehabilitation Potential Good Summary Impairments Pain,ROM,Strength,Balance, Coordination,Sensation,Tone, Cognition,Bed Mobility, Transfers,Gait,Activity Tolerance Progress Towards Goals Slow Progress due to Pain,Slow Progress due to Activity Tolerance Assessment Summary caregiver training conducted and spouse was able to assist pt but requires occasional cues. pt's daughter stated that she will go home with them today and will also assist pt and pt's spouse initially. pt and family has no other concerns. Pt will require homehealth PT. Goals Bed Mobility Goal Standby Assistance Transfer Goal Standby Assistance,Front Wheeled Walker Gait Goal Standby Assistance,Front Wheel Walker Gait Distance 150 Other Goals up/down 4 steps 1 rail Days to Meet Goals 5 Frequency of Treatment Frequency Of Treatment Twice a Day Treatment Plan Physical Therapy Treatment Plan Bed Mobility Training,Transfer Training,Gait Training, Therapeutic Exercise,Balance Retraining,Post Op Education, Discharge Planning,Hot or Cold Pack,Neuromuscular Re-ed, Coordination Retraining,Manual Therapy Other Recommendations and Next Treatment caregiver training, ambulation Focus , stair training when appropriate Recommendations To Nursing Amount of Assist Needed 1 Person Assist Discharge Recommendations PT Discharge Recommendations Home with 10/01 Assist,Home Health Transportation Needs at Discharge Private Vehicle,Wheelchair/ Cabulance
--- NOTE | 2019-08-04 14:41 | PC.NURSE ---
Addendum entered by Beatriz Miller R.N. 08/04/19 15:13: Passed stairs with PT and wants to go home this afternoon. This grant writer spoke with ROSALIND Burnett, re-entered discharge order. Still needs dressing changed to Aquacel. Discharge paperwork is basically ready, will make next shift RN aware of the same. Original Note: Shift summary: Alert and oriented X3. Bulky dressing to R hip C/D/I. CMS+, denies paresthesias. Posterior precautions maintained and reinforced with patient. Taking Vicodin for pain w/ ice packs refilled frequently and placed to R hip. Plan to change to Aquacel dressing next time patient standing. Lungs CTA, HRR. VSS. BT+, flatus+. Got bowel meds ordered, will ask rhonda shift to admin at HS if patient agreeable (last BM 07/31). Had difficulty with stairs this morning, so discharge home not likely until tomorrow (with HH). Up in chair playing cards with family. Call light and belongings within reach. Calls appropriately for assist with ambulation/needs.
--- NOTE | 2019-08-04 15:11 | CM.DPNOTE ---
DC Note Spoke w/pt and her family; reviewed DCP. Pt/family agreeable to home today w/ HH and Ortho PA Tash and therapy team confirm plan. No HH agency preference so arranged home health through [facility] based on calendar rotation, spoke w/ Lyly who secured an RN spot Tuesday w/ PT/OT/[employer] to follow next week. Faxed clinical packet to include signed F2F, HH order, therapy notes and H+P/DC Summary P: DC home today w/family and [facility] via pov HENNA Mari
[2019-08-04] MEDS: hydrOXYzine pamoate 25 MG CAPSULE PO (16:22)
--- NOTE | 2019-08-04 16:44 | PC.NURSE ---
Pt's daughter present in room for pt's discharge to home. All pt's personal effects are accounted for and in possession of pt/pt's daughter. Pt medicated with vistaril prior to discharge per request as per emar. Discharge instructions provided in written and verbal format as well as prescriptions. Questions answered as appropriate. Bulky surgical dressing to right hip removed. Staple line intact with wound edges well approximated. No drainage/bleeding noted. Aquacel dressing applied as ordered. IV dc'd intact. Pt able to dress with assistance of daughter. Able to transfer from chair to wheelchair. Pt left hospital in stable condition escorted by this narrative writer via wheelchair. Pt's daughter as diesel truck driver of private vehicle to transport pt to home.
== END 2019-08-04 16:30 | disposition home health service (06) ==
LOC: AC 08-04 11:45 → OR 08-05 09:05 → AC 08-05 09:09
PROVIDERS: Admitting Provider Orthopaedic Surgery; PCP Physician Assistant; Referring Provider Orthopaedic Surgery; Visit Provider Orthopaedic Surgery
PROC: 0SR90JZ Replacement of Right Hip Joint with Synthetic Substitute, Open Approach (ICD-10-PCS; CPT 27130; principal; 2019-08-01 11:45)
DX: M16.11 Unilateral primary osteoarthritis, right hip (principal); I10 Essential (primary) hypertension; E66.9 Obesity, unspecified; Z68.38 Body mass index [BMI] 38.0-38.9, adult; R73.03 Prediabetes; E78.5 Hyperlipidemia, unspecified; G47.33 Obstructive sleep apnea (adult) (pediatric)
CPT/HCPCS: 27130; 36415; 72170; 82962; 85014; 85018; 97110; 97116; 97161; 97530; C1776; G0378; J0690; J1650; J1885; J2250; J2270; J2704; J3010

== ENCOUNTER → 2019-11-17 13:24 | Outpatient (CLI) | payer MEDICARE, MEDICAID, SELFPAY ==
[2019-11-14 10:51] VITALS: BMI 37.5
[2019-11-19 02:20] LABS: COVID19 Sendout Not Detected (Not Detect)
== END ==
PROVIDERS: PCP Physician Assistant; Visit Provider Physician Assistant
DX: Z01.818 Encounter for other preprocedural examination (principal)
CPT/HCPCS: 87635

== ENCOUNTER 2019-11-19 06:59 | Inpatient (IN) | payer MEDICARE, MEDICAID, SELFPAY ==
[2019-08-01 18:30] VITALS: BMI 37.5
[2019-11-13 14:41] VITALS: BMI 38.7
[2019-11-14 10:51] VITALS: BMI 37.5
[2019-11-19] VITALS (15 sets, daily range): BP systolic 83–136; BP diastolic 38–75; PULSE 73–99; RESP 10–24; TEMP 35.8–36.6; O2SAT 95–100; BMI 39.4
--- NOTE | 2019-11-19 | DI.RAD.S_ITS ---
PROCEDURE: XR HIP W PEL IF DONE RT 2V INDICATIONS: RIGHT HIP CUP REVISION TECHNIQUE: 2 view(s) of the hip acquired. COMPARISON: [facility] Outside Film, RG, PELVIS W/LAT HIP RT, 10/18/2019, 16:32. [facility] Outside Film, RG, PELVIS W/LAT HIP RT, 10/18/2019, 17:03. FINDINGS: Bones: Patient is status post right and left total hip hip arthroplasty, with hardware components in expected positions. The right hip acetabular cup component has been replaced, with screw fixation, and what appears to be the femoral component remains, now intact within the acetabular cup. The hip joint appears congruent. The visualized bony structures appear intact. Soft tissues: Overlying postoperative changes are noted. No suspicious soft tissue densities. IMPRESSION: Revision right hip arthroplasty with replacement of the original acetabular component but apparent maintenance of the femoral component, with acetabular component now fixed by approximately 4 fixation screws. The prior acetabular component had been associated with a superior arthroplasty dislocation 10/18/19. No [place] bone fracture is found. Dictated by: Gabriele Taylor M.D. on 11/19/2019 at 12:13 Approved by: Gabriele Taylor M.D. on 11/19/2019 at 12:19
[2019-11-19] MEDS: CELECOXIB 200 MG CAPSULE PO (07:22)
[2019-11-19] MEDS: ACETAMINOPHEN 325 MG TABLET 975 MG PO (07:22)
[2019-11-19] MEDS: LACTATED RINGERS 1,000 ML 42 ML IV ×3 (07:30→10:52)
--- NOTE | 2019-11-19 07:44 | PM.PREOP ---
Pre-operative Note COVID-19 COVID-19 status: Negative Result date/Date tested (Pos, Neg/Pending): 11/16/19 Interval Note History & Physical reviewed/Exam performed by Physician: Yes Changes to H&P: No
[2019-11-19] MEDS: CEFAZOLIN 2 GM/100 ML FROZ.PIGGY IV ×3 (08:04→23:29)
--- NOTE | 2019-11-19 08:32 | SUR.OPER ---
Left Lateral on padded OR bed. Gel axillary roll. Arms secured on padded armboard with pillow supporting top arm. Padded hip positioner braces x4 - anterior and posterior chest and pelvis. Additional gel pad used anterior pelvis. Gel pad under bottom leg from knee to foot and secured with tape over sheet.
[2019-11-19] MEDS: TRANEXAMIC ACID 1,000 MG VIAL 1000 MG IV ×2 (08:45→10:36)
[2019-11-19] MEDS: ROPIVACAINE 0.5% PF 30ML 60 ML INJ (08:46)
[2019-11-19] MEDS: KETOROLAC 60 MG/2 ML VIAL 30 MG INJ (08:46)
[2019-11-19] MEDS: MORPHINE 4 MG/ML INJ INJ (08:48)
--- NOTE | 2019-11-19 09:29 | DI.RAD.S_ITS ---
PROCEDURE: XR PELVIS 1-2V INDICATIONS: INTEROPERATIVE HIP REVISION TECHNIQUE: Intra-operative view of the pelvis and hip acquired. COMPARISON: [facility], CR, XR PELVIS 1-2V, 08/01/2019, 14:09. FINDINGS: Bones: Intraoperative devices prior to placement of arthroplasty prostheses are in expected positions. No fractures or suspicious bony lesions. Soft tissues: Overlying surgical retractors are present, along with other intraoperative changes. IMPRESSION: Intraoperative image of pelvis shows right total hip arthroplasty revision in progress. Dictated by: Duran Candelario M.D. on 11/19/2019 at 9:57 Approved by: Duran Candelario M.D. on 11/19/2019 at 9:57
--- NOTE | 2019-11-19 09:49 | PC.NURSE ---
Day shift: Pt not on AC unit at this time.
--- NOTE | 2019-11-19 11:23 | PM.OP.1 ---
Operative Date/Time/Diagnoses Date of procedure: 11/19/19 Time of procedure: 11:23 Pre-op diagnosis: Status post right total hip arthroplasty, recurrent dislocations Post-op diagnosis: same Procedure & Clinicians Procedure: Revision right total hip arthroplasty, revision of acetabular component (CPT code 69867 with assistant media buyer) Same procedure as scheduled: Yes Indications: 64-year-old female 3 months status post right total hip arthroplasty who had a dislocation after a fall approximately 4 weeks postoperatively. This was treated conservatively and she appeared to be recovering well but unfortunately dislocated again at approximately 8 weeks postop. We have discussed the nature of condition, differential diagnosis, prognosis and options and patient elected proceed with revision arthroplasty most likely revision of the acetabular component. Patient gives informed consent to proceed Surgeon: Mike Duval Mixing Machine Tender Cork Rod: Akshat Aiken Anesthesia Type: General and Spinal Operative Notes Closure Type: primary Specimen(s): none sent Prosthetic devices, grafts, tissues, transplants, or devices: Miguel [employer] Nephew revision acetabular component, 54 mm with 0R30 mobile bearing surface Estimated Blood Loss (mL): 500 Blood products transfused: none Procedure in detail: After administration of IV antibiotics and satisfactory induction of anesthetic patient placed in lateral decubitus position with all bony prominences well-padded and pelvic position secured using a hip valuer position device. First dose of tranexamic acid was administered intravenously. Right lower extremity prepped draped usual sterile fashion. Incision created in line with previous surgical incision carried sharply through the skin and subcutaneous tissues down to the fascia kenisha which was intact. Moderate amount of clear fluid was encountered at the bursal layer. This layer was mobilized then the fascia kenisha was incised longitudinally and retained sutures removed. Scar tissue around the proximal femur and femoral neck as well as periacetabular area was debrided and the tissues mobilized. Hip dislocated and the femoral ball was removed from the femoral component then a pocket was created anterior superiorly on the acetabulum for the femoral neck to be retracted into. Moderate amount of scar tissue was encountered anteriorly and this was fully debrided along with the scar tissue inferiorly. The femur was retracted anteriorly and the acetabular component was visualized and appeared to be in satisfactory position. Scar tissue excised from around the rim of the acetabulum and the acetabular liner was removed. Using the explant device is the acetabulum was freed from its attachment and removed the acetabulum appeared intact. Sequential reaming of the acetabulum up to 53 mm with excellent circumferential ream and fit with the trial. A size 54 mm Miguel and Nephew revision acetabular component was selected inserted provisionally and intraoperative fluoroscopic images taken showing satisfactory position (at this point a cross-table x-ray was taken, but the portable x-ray machine with visualization screen was not available, so after 1 attempt at a cross-table AP we decided to use the C-arm for imaging). The component appeared to be satisfactorily positioned the primary concern being enough anteversion, so the acetabular component was impacted and initially fixed with 2 screws. A trial liner was placed and a trial reduction was performed which yielded good leg length range of motion and stability with a +0 ball, another trial reduction was performed with a +4 ball which yielded even better stability. The acetabular component was then fixed with 2 locking screws in addition to the 1st 2 initial screws the mobile bearing liner was inserted and fixed in place. Mobile bearing femoral head was then constructed and the hip reduced. Fluoroscopic images demonstrated satisfactory position of implants including satisfactory anteversion of the acetabular component, good leg length and offset. The hip was ranged and with the hip flexed 90? was stable to about 60? of internal rotation with the leg maximally abducted at 90? the hip was stable to about 60? of internal rotation as well. Hip was very stable and extension and there was no anterior instability. The wound was copiously irrigated and the capsule repaired with 1 Ethibond. Copious irrigation with initially Betadine then saline. Fascia kenisha was then closed with interrupted 1. Ethibond sutures and the subcutaneous tissues were closed in 2 layers of 0 Vicryl into 0 Vicryl and skin closed with ebony. Sterile dressings applied and the anesthetic was terminated patient taken to postanesthetic recovery in satisfactory condition. Complications: none Post-operative Condition: stable Disposition: PACU Plan for aftercare: Patient will be admitted to the acute care faye, and anticipate discharge on postop day 1 or 2 with follow-up in office in 10-14 days. Outpatient physical therapy will be arranged and patient will continue to observe posterior hip precautions. Patient will continue use of postoperative aspirin for DVT prophylaxis postop.
--- NOTE | 2019-11-19 11:46 | SUR.PHASEI ---
Assumed care of pt. Micky back to retake xray, pt turned on side epidural site assessed. Denies pain. Taking ice chips well.
--- NOTE | 2019-11-19 11:56 | SUR.PHASEI ---
Dr. Duval in to speak with pt.
--- NOTE | 2019-11-19 12:08 | SUR.PHASEI ---
Chantel called report. Pt transported up to room. 213.
--- NOTE | 2019-11-19 12:12 | PC.NURSE ---
Day shift: Pt on unit from PACU at approx 1213.
[2019-11-19] MEDS: LACTATED RINGERS 1,000 ML 125 ML IV ×2 (13:08→22:03)
[2019-11-19] MEDS: OXYCODONE IR 5 MG TABLET PO ×2 (13:10→18:22)
[2019-11-19] MEDS: hydrOXYzine pamoate 25 MG CAPSULE PO (14:48)
[2019-11-19] MEDS: ACETAMINOPHEN 325 MG TABLET 650 MG PO (14:48)
--- NOTE | 2019-11-19 15:20 | PT.IIE ---
Current Diagnoses Unilateral primary osteoarthritis, right hip (11/19/19) Dislocation of unspecified internal joint prosthesis, initial encounter (11/19/19) Surgery Performed Operation Date: 11/19/19 07:45 Actual Procedures p Total Hip Arthroplasty Revision(Right) - Mike Duval MD Surgical History (Last Updated 11/13/19 @ 14:53 by Tessa Terry RN) History of arthroplasty of right knee (Acute 10/03/18) History of arthroscopy of both knees (Acute) History of hysterectomy (Acute) History of lumbar surgery (Acute) History of total left hip arthroplasty (Acute ~2014) History of total right hip arthroplasty (Acute 08/01/19) Hx of tonsillectomy (Acute) S/P left rotator cuff repair (Acute) Medical History (Last Updated 11/13/19 @ 14:53 by Tessa Terry RN) HLD (hyperlipidemia) (Acute) HTN (hypertension) (Acute) Knee tumor (Acute) Narcotic-induced respiratory depression (Acute 10/03/18) Pre-diabetes (Acute) Recurrent dislocation, right hip (Acute 2019) Sleep apnea with use of continuous positive airway pressure (CPAP) (Acute) Physical Therapy Inpatient Evaluation/Re-Eval M1 PT/OT-IP Prior Functional Status Start: 11/19/19 12:54 Freq: NEEDED Status: Active Protocol: Document 11/19/19 14:44 AW (Rec: 11/19/19 15:19 AW [id number]) Medical Review Prior Functional Status Medical History Reviewed Yes Diet/Fluid Consistency Regular Communication WNL. Pt is an effective verbal communicator. Mobility and Gait Pt was independent with functional mobility prior to R CARMEN in July. Since then, she used a FWW before graduating to a [facility] which she was using when she initially dislocated while bending forward. Following reduction, she was in a right knee immobilizer for unclear reasons and had been using her FWW again. She has dislocated at least one more time since that initial encounter. Activities of Daily Living and IADL's Independent except for donning her right sock. Her helps her with sock management . Social History Household Members spouse Living Arrangements Mobile home Number of Floors (Floors) One Floor Number of Stairs To Enter/Railing? 4 SUSAN with wide bilateral rails Home Environment High Toilet,Walk in Shower Home Equipment Front Wheel Walker,Four Wheel Walker,Straight Cane,Raised Toilet Seat w/Armrests,Grab Bars In Shower Additional Social History Comment Pt lives with her spouse who she describes as having multiple medical problems including chronic back pain. She states he assists her as needed but she feels badly about it. They used to have a tall bed which required a stool to get in and out. They replaced that bed to eliminate the need for a stool. M2 PT-IP Current Condition Start: 11/19/19 12:54 Freq: NEEDED Status: Active Protocol: Document 11/19/19 14:44 AW (Rec: 11/19/19 15:19 AW [id number]) Physical Therapy Current Condition Current Condition Evaluation Date 11/19/19 Treatment Diagnosis s/p revision R CARMEN; difficulty in walking Onset Date 11/19/19 Precautions Posterior Hip Precautions No Hip Flexion > 90 degrees,No Hip Internal Rotation,No Hip Adduction Weight Bearing Status Weight Bearing Status Weight Bear as Tolerated M3 PT-IP Subjective Start: 11/19/19 12:54 Freq: NEEDED Status: Active Protocol: Document 11/19/19 14:44 AW (Rec: 11/19/19 15:19 AW [id number]) Subjective Physical Therapy Visit Type Type Initial Evaluation Visit Start Time 14:03 Visit Stop Time 14:43 Total Visit Minutes 37 Physical Therapy Visit Comments Patient Comments Pt is willing to participate with PT Patient Goals Pt hopes to return home with her 's support Therapy Pain Assessment Pain When Pain Assessed During Mobility Pain Present Pain Present Pain Reported Location right hip Intensity 5 Scale Used 5/10 at rest; unchanged with mobility Pain Management Techniques Apply Cold,Re-positioning, Timing of Activity with Medications M4 PT-IP Mobility and Gait Start: 11/19/19 12:54 Freq: NEEDED Status: Active Protocol: Document 11/19/19 14:44 AW (Rec: 11/19/19 15:19 AW [id number]) PT-Bed Mobility Assessment Supine to Sit Supine to Sit Minimal Assistance,Bedrails Scooting Scooting to Edge of Bed Standby Assistance PT-Transfer Assessment Sit to and From Stand Sit to and from Stand Contact Guard Assistance Equipment Transfer Assistive Device Gait Belt,Front Wheeled Walker Orthotic/Prosthetic Devices or Brace: No Transfers Transfer Destination Chair Transfer Technique pt ambulated with FWW Transfer Ability Level of Assist Contact Guard Assistance,Use of Upper Extremities Comments Mobility Comments Pt sitting up in bed upon PT arrival. Supine BP was 116/50. She completed supine to sit observing posterior hip precautions. Min assist was required to support her operative leg during the transfer. She was able to sit EOB with and without UE support before standing with FWW CGA. She reported mild dizziness but was comfortable shifting weight side to side. She ambulated 4 feet to the chair with FWW CGA where she sat with good eccentric control with verbal cues and CGA. Gait Assessment Gait Gait Assistance Required: Contact Guard Assist,1 Person Assist Distance (Feet) 4 Able to Maintain Weight Bearing Status Yes During Gait Assistive Devices Assistive Device Gait Belt,Front Wheeled Walker Orthotic/Prosthetic Devices or Brace: No Gait Deviations General Gait Pattern Antalgic,Decreased Stride Length,Decreased Feet Clearance,Flexed Trunk,Step-to Gait Factors Limiting Gait Function Factors Limiting Gait Function Decreased Activity Tolerance, Decreased Sensation,Decreased Strength,Pain,Poor Balance Comments Gait Comments Pt ambulated ~4 feet with FWW CGA, able to accept weight on RLE while appropriately offloading through BUE using the walker. Stair Climbing Assessment Comments Stair Climbing Comments Not assessed. PT-Balance Assessment Sitting Balance and Reactions Static Sitting Balance Ability Good Dynamic Sitting Balance Ability Good Standing Balance and Reactions Static Standing Balance Ability Good Dynamic Standing Balance Ability Good Device Used FWW M5 PT-IP Objective Assessments Start: 11/19/19 12:54 Freq: NEEDED Status: Active Protocol: Document 11/19/19 14:44 AW (Rec: 11/19/19 15:19 AW [id number]) Orientation Orientation/Cognition Level of Alertness Alert Orientation Name,Day of Week,Place, Situation Language Function Ability No Deficits Noted Safety Awareness Understands Safety Issues Memory Description No Deficits Noted Gross Range of Motion Lower Extremity ROM Assessment Right Impaired Strength Lower Extremity Strength Assessment Right Impaired Comments Strength Comments RLE 3+/5 Coordination Assessment Gross Coordination Gross Coordination WNL Sensation Assessment Sensation Gross Sensation Right LE Impaired Sensation Description Numbness Comments Sensation Comments Pt still numb in distal RLE following spinal Muscle Tone Muscle Tone WNL Yes M6 PT-IP Treatment Start: 11/19/19 12:54 Freq: NEEDED Status: Active Protocol: Document 11/19/19 14:44 AW (Rec: 11/19/19 15:19 AW [id number]) Physical Therapy Treatment Exercises Exercises Ankle Pumps,Gluteal Sets,Quad Sets,Heel Slides Education Education Provided Precautions,Weight Bearing Status,Post-Op Packet,Safety Other Treatments Other Treatment Performed Provided education on role of PT, plan of care, weightbearing status, posterior hip precautions, and safe use of FWW. M7 PT-IP Assessment and Plan Start: 11/19/19 12:54 Freq: NEEDED Status: Active Protocol: Document 11/19/19 14:44 AW (Rec: 11/19/19 15:19 AW [id number]) PT Summary Assessment and Plan Potential Rehabilitation Potential Good Status of Condition at Evaluation Evolving Summary Impairments Pain,ROM,Strength,Balance, Sensation,Bed Mobility, Transfers,Gait,Activity Tolerance Assessment Summary Joyce is a 64 yo woman seen for PT evaluation on POD0 following revision R CARMEN. She underwent R CARMEN in July 2019 and subsequently dislocated at least twice leading up to revision today. Prior to CARMEN, she was independent with all functional mobility and ADL's. On evaluation, she required min assist with bed mobility, CGA for transfers and brief bout of ambulation with FWW. She will benefit from continued acute PT to address independence with transfers, LE strength, and to reinforce posterior hip precautions. She will likely be safe to discharge to home with her assisting but would benefit from caregiver training on day of discharge. Pt may also benefit from home health PT to continue to improve indpendence with mobility at home. Goals Bed Mobility Goal Standby Assistance Transfer Goal Standby Assistance,Front Wheeled Walker Gait Goal Standby Assistance,Front Wheel Walker Gait Distance 150 Other Goals -up/down 4 steps with unilateral rail CGA Days to Meet Goals 3 Frequency of Treatment Frequency Of Treatment Twice a Day Treatment Plan Physical Therapy Treatment Plan Bed Mobility Training,Transfer Training,Gait Training, Therapeutic Exercise,Balance Retraining,Post Op Education, Discharge Planning,Hot or Cold Pack,Neuromuscular Re-ed Other Recommendations and Next Treatment transfers, progress ambulation Focus distance with FWW; reinforce posterior precautions; assess safety on stairs when appropriate Recommendations To Nursing Amount of Assist Needed 1 Person Assist Discharge Recommendations PT Discharge Recommendations Home with Assistance,Home Health Transportation Needs at Discharge Private Vehicle
[2019-11-19] MEDS: HYDROCODONE/ACET 5/325 TABLET 1 TAB PO (15:57)
[2019-11-19] MEDS: GABAPENTIN 600 MG TABLET PO (20:34)
[2019-11-19] MEDS: ASPIRIN EC 81 MG TABLET PO (20:34)
[2019-11-19] MEDS: DULOXETINE 30 MG CAPSULE 60 MG PO (20:34)
[2019-11-19] MEDS: ATORVASTATIN 20 MG TABLET PO (20:34)
[2019-11-19] MEDS: DOCUSATE 100 MG CAPSULE PO (20:34)
[2019-11-19] MEDS: HYDROCODONE/ACET 5/325 TABLET 2 TAB PO (20:37)
--- NOTE | 2019-11-19 23:22 | PC.NURSE ---
pain not well controlled with 1 tab of oxycodone and 1 tab of norco. notified physician, VTO to increase norco to 2 tabs. pt is now tolerating pain /. ambulated to the BR 1PA. call light in reach. bed alarm active.
[2019-11-19] MEDS: ZOLPIDEM 5 MG TABLET PO (23:29)
[2019-11-20] VITALS (7 sets, daily range): BP systolic 94–118; BP diastolic 38–70; PULSE 82–97; RESP 16–18; TEMP 36.3–36.6; O2SAT 92–97
[2019-11-20] MEDS: HYDROCODONE/ACET 5/325 TABLET 2 TAB PO ×5 (00:34→22:47)
--- NOTE | 2019-11-20 01:49 | PC.NURSE ---
Addendum entered by Delia Ambrosio R.N. 11/20/19 05:36: Up to [facility] with walker and 1 assist. Pain increased with movement and is now 6/10; medicated with Vicodin. Original Note: Patient initially seen and assessed at 2325. Is alert and oriented. Breath sounds CTA; on oxygen at 1L/min per NC with sat of 94%. RT here to set up home CPAP. HRR with BP of 98/59; denies any current dizziness. Denies nausea. BT present but has not yet passed flatus. Has been up to bathroom on previous shift to void; denies dysuria, frequency or urgency. Able to move self in bed. Bulky dressing to right hip is CDI. CMS is intact bilaterally, able to lift leg only slightly off bed. Wearing bilateral calf SCD's. Fall risk score is high and bed alarm is activated. Requested to be awakened when pain meds are due as was having earlier pain control issues; medicated with Vicodin at 0034 and is currently asleep.
[2019-11-20 06:19] LABS: Hematocrit 31.4 % (36-46); Hemoglobin 10.7 g/dL (12.0-16.0)
[2019-11-20] MEDS: LACTATED RINGERS 1,000 ML 125 ML IV (07:00)
--- NOTE | 2019-11-20 07:41 | PM.PNPO.1 ---
Subjective Subjective Date Patient Seen: 11/20/19 Time Patient Seen: 07:41 Interval history: Postoperative day 1 Right total hip arthroplasty revision. Patient doing well with expected amount of pain requiring a little bit of extra fluid due to low blood pressure last night but feeling well this morning. Moderate right hip discomfort but no other complaints period Exam Vital Signs (past 8 hours): - 11/20/19 00:00 11/20/19 04:32 Temperature 97.6 F 97.7 F Pulse Rate 84 97 H Respiratory Rate 16 16 Blood Pressure 98/59 L 94/38 L Pulse Oximetry 94 97 Oxygen Delivery Method Nasal Cannula Oxygen Flow Rate 1 Narrative Exam Narrative: Afebrile and vital signs are stable Lower extremities neurovascular intact dressing dry and intact. Objective Labs Result Diagrams: 11/20/19 05:30 Labs: Laboratory Results - last 24 hr 11/20/19 05:30 Hgb 10.7 L Hct 31.4 L Assessment & Plan Post-op Postoperative Procedures: Procedures Operation Date: 11/19/19 07:45 Actual Procedures Side Surgeon p Total Hip Arthroplasty Revision Right Mike Duval MD Postoperative day: 1 Postoperative status narrative: Doing well postop day 1. Right total hip revision. Recovery as anticipated thus far will work on physical therapy and pain control today and probable discharge home tomorrow. Continue posterior hip precautions. Postoperative plan: routine post-op care
[2019-11-20] MEDS: DULOXETINE 30 MG CAPSULE 60 MG PO ×2 (09:52→20:54)
[2019-11-20] MEDS: ASPIRIN EC 81 MG TABLET PO ×2 (09:52→20:53)
[2019-11-20] MEDS: GABAPENTIN 300 MG CAPSULE PO (09:52)
[2019-11-20] MEDS: DOCUSATE 100 MG CAPSULE PO ×2 (09:52→20:54)
[2019-11-20] MEDS: hydroCHLOROthiazide 25 MG TABLET PO (09:53)
[2019-11-20] MEDS: METFORMIN HCL 500 MG TABLET PO (09:53)
[2019-11-20] MEDS: PANTOPRAZOLE 20 MG TABLET PO (09:53)
[2019-11-20] MEDS: LOSARTAN 50 MG TABLET 100 MG PO (09:53)
--- NOTE | 2019-11-20 11:08 | PC.NURSE ---
Patient seen at 0730, resting in bed, A/Ox3, IV infusing at prescribed dose, lung sounds clear, patient reports feeing dizzy when up to ambulating, and is hypotensive, will continue prescribed post-op fluids. Pt right hip dsg is rolling away from Sx site, this RN reinforced dsg with island barrier, skin is free of redness and warmth, patient is afebrile. CMS intact. Pulses equal bilaterally. Patient denies numbness, tingling or decreased sensation in RLE. Patient does c/o post op pain, ice pack applied, repositioned, prescribed PRN given at 0930, patient getting up to use the restroom and ambulating with 1p assist, FWW. Abdomen is nontender, BT active x4, passing flatus, no BM at this time. SCD's reapplied bilaterally. Call light in reach.
--- NOTE | 2019-11-20 11:58 | PT.IPTN ---
Current Diagnoses Unilateral primary osteoarthritis, right hip (11/19/19) Dislocation of unspecified internal joint prosthesis, initial encounter (11/19/19) Surgery Performed Operation Date: 11/19/19 07:45 Actual Procedures p Total Hip Arthroplasty Revision(Right) - Mike Duval MD Physical Therapy Treatment Note M2 PT-IP Current Condition Start: 11/19/19 12:54 Freq: NEEDED Status: Active Protocol: Document 11/19/19 14:44 AW (Rec: 11/19/19 15:19 AW [id number]) Physical Therapy Current Condition Current Condition Evaluation Date 11/19/19 Treatment Diagnosis s/p revision R CARMEN; difficulty in walking Onset Date 11/19/19 Precautions Posterior Hip Precautions No Hip Flexion > 90 degrees,No Hip Internal Rotation,No Hip Adduction Weight Bearing Status Weight Bearing Status Weight Bear as Tolerated M3 PT-IP Subjective Start: 11/19/19 12:54 Freq: NEEDED Status: Active Protocol: Document 11/20/19 11:33 CLB (Rec: 11/20/19 13:04 CLB [id number]) Subjective Physical Therapy Visit Type Type Treatment Note Visit Start Time 11:33 Visit Stop Time 11:58 Total Visit Minutes 25 Number of INTELLIGENCE SENIOR SERGEANT Visits 1 Physical Therapy Visit Comments Patient Comments Pt is willing to participate with PT Patient Goals Pt hopes to return home with her 's support Therapy Pain Assessment Pain When Pain Assessed During Mobility Pain Present Pain Present Pain Reported Location right hip Intensity 5 Scale Used Numeric (1 - 10) Pain Management Techniques Apply Cold,Re-positioning, Timing of Activity with Medications M4 PT-IP Mobility and Gait Start: 11/19/19 12:54 Freq: NEEDED Status: Active Protocol: Document 11/20/19 11:33 CLB (Rec: 11/20/19 13:04 CLB [id number]) PT-Bed Mobility Assessment Supine to Sit Supine to Sit Standby Assistance,Bedrails Scooting Scooting to Edge of Bed Moderate Assistance PT-Transfer Assessment Sit to and From Stand Sit to and from Stand Contact Guard Assistance Equipment Transfer Assistive Device Gait Belt,Front Wheeled Walker Orthotic/Prosthetic Devices or Brace: No Transfers Transfer Destination Chair,Toilet Transfer Technique pt ambulated with FWW Transfer Ability Level of Assist Contact Guard Assistance,Use of Upper Extremities Comments Mobility Comments Pt in bed upon arrival. Pt BP in supine 113/56, pt required SBA to sitting position then required Mod A for scooting to EOB due to pain in right hip. Pt BP in sitting 110/58, pt stood from bed requiring CGA, BP in standing 104/58, pt reported mild dizziness that subsided. Pt ambulated to BR ~ 7ft and required cues for hip precautions as pt turned to position herself in front of the toilet. Pt required CGA to lower onto low toilet. Pt able to perform own pericare. Pt then ambulated to sink requiring SBA for standing balance. Pt ambulated in room ~20ft before pain increased and pt wanted to sit down. Pt BP in sitting 117/57. Pt required assist with IV pole during tx. Pt left in reclined chair with all needs within reach. Gait Assessment Gait Gait Assistance Required: Contact Guard Assist,1 Person Assist Distance (Feet) 20 Able to Maintain Weight Bearing Status Yes During Gait Assistive Devices Assistive Device Gait Belt,Front Wheeled Walker Orthotic/Prosthetic Devices or Brace: No Gait Deviations General Gait Pattern Antalgic,Decreased Stride Length,Decreased Feet Clearance,Flexed Trunk,Step-to Gait Factors Limiting Gait Function Factors Limiting Gait Function Decreased Activity Tolerance, Decreased Sensation,Decreased Strength,Pain,Poor Balance Comments Gait Comments Pt ambulated ~20ft with step to gait with increased use of UE's. Pt c/o increased pain 6/ 10 during WBing. Stair Climbing Assessment Comments Stair Climbing Comments Not assessed. M5 PT-IP Objective Assessments Start: 11/19/19 12:54 Freq: NEEDED Status: Active Protocol: Document 11/19/19 14:44 AW (Rec: 11/19/19 15:19 AW [id number]) Orientation Orientation/Cognition Level of Alertness Alert Orientation Name,Day of Week,Place, Situation Language Function Ability No Deficits Noted Safety Awareness Understands Safety Issues Memory Description No Deficits Noted Gross Range of Motion Lower Extremity ROM Assessment Right Impaired Strength Lower Extremity Strength Assessment Right Impaired Comments Strength Comments RLE 3+/5 Coordination Assessment Gross Coordination Gross Coordination WNL Sensation Assessment Sensation Gross Sensation Right LE Impaired Sensation Description Numbness Comments Sensation Comments Pt still numb in distal RLE following spinal Muscle Tone Muscle Tone WNL Yes M6 PT-IP Treatment Start: 11/19/19 12:54 Freq: NEEDED Status: Active Protocol: Document 06/01/20 14:44 AW (Rec: 11/19/19 15:19 AW [id number]) Physical Therapy Treatment Exercises Exercises Ankle Pumps,Gluteal Sets,Quad Sets,Heel Slides Education Education Provided Precautions,Weight Bearing Status,Post-Op Packet,Safety Other Treatments Other Treatment Performed Provided education on role of PT, plan of care, weightbearing status, posterior hip precautions, and safe use of FWW. M7 PT-IP Assessment and Plan Start: 11/19/19 12:54 Freq: NEEDED Status: Active Protocol: Document 11/20/19 11:33 CLB (Rec: 11/20/19 13:04 CLB [id number]) PT Summary Assessment and Plan Summary Impairments Pain,ROM,Strength,Balance, Sensation,Bed Mobility, Transfers,Gait,Activity Tolerance Assessment Summary Pt recalls 3/3 post hip precautions but continues to need cues to prevent hip internal rotation in standing while turning in standing. Pt educated on hip precautions in standing. Pt able to increase gait distance to ~20ft, pt will need to increase gait and trial stairs before d/c home with spouse assist. Goals Bed Mobility Goal Standby Assistance Transfer Goal Standby Assistance,Front Wheeled Walker Gait Goal Standby Assistance,Front Wheel Walker Gait Distance 150 Other Goals -up/down 4 steps with unilateral rail CGA Days to Meet Goals 3 Frequency of Treatment Frequency Of Treatment Twice a Day Treatment Plan Physical Therapy Treatment Plan Bed Mobility Training,Transfer Training,Gait Training, Therapeutic Exercise,Balance Retraining,Post Op Education, Discharge Planning,Hot or Cold Pack,Neuromuscular Re-ed Other Recommendations and Next Treatment transfers, progress ambulation Focus distance with FWW; reinforce posterior precautions; assess safety on stairs when appropriate Recommendations To Nursing Amount of Assist Needed 1 Person Assist Discharge Recommendations PT Discharge Recommendations Home with Assistance,Home Health Transportation Needs at Discharge Private Vehicle
--- NOTE | 2019-11-20 14:17 | PT.IPTN ---
Current Diagnoses Unilateral primary osteoarthritis, right hip (11/19/19) Dislocation of unspecified internal joint prosthesis, initial encounter (11/19/19) Surgery Performed Operation Date: 11/19/19 07:45 Actual Procedures p Total Hip Arthroplasty Revision(Right) - Mike Duval MD Physical Therapy Treatment Note M2 PT-IP Current Condition Start: 11/19/19 12:54 Freq: NEEDED Status: Active Protocol: Document 11/19/19 14:44 AW (Rec: 11/19/19 15:19 AW [id number]) Physical Therapy Current Condition Current Condition Evaluation Date 11/19/19 Treatment Diagnosis s/p revision R CARMEN; difficulty in walking Onset Date 11/19/19 Precautions Posterior Hip Precautions No Hip Flexion > 90 degrees,No Hip Internal Rotation,No Hip Adduction Weight Bearing Status Weight Bearing Status Weight Bear as Tolerated M3 PT-IP Subjective Start: 11/19/19 12:54 Freq: NEEDED Status: Active Protocol: Document 11/20/19 13:40 CLB (Rec: 11/20/19 15:00 CLB [id number]) Subjective Physical Therapy Visit Type Type Treatment Note Visit Start Time 13:40 Visit Stop Time 14:17 Total Visit Minutes 37 Number of INVERTER AND CLIPPER Visits 2 Physical Therapy Visit Comments Patient Comments Pt is willing to participate with PT Patient Goals Pt hopes to return home with her 's support Therapy Pain Assessment Pain When Pain Assessed During Mobility Pain Present Pain Present Pain Reported Location right hip Intensity 5 Scale Used Numeric (1 - 10) Pain Management Techniques Apply Cold,Re-positioning, Timing of Activity with Medications M4 PT-IP Mobility and Gait Start: 11/19/19 12:54 Freq: NEEDED Status: Active Protocol: Document 11/20/19 13:40 CLB (Rec: 11/20/19 15:00 CLB [id number]) PT-Bed Mobility Assessment Sit to Supine Sit to Supine Minimal Assistance PT-Transfer Assessment Sit to and From Stand Sit to and from Stand Contact Guard Assistance, Minimal Assistance Equipment Transfer Assistive Device Gait Belt,Front Wheeled Walker Orthotic/Prosthetic Devices or Brace: No Transfers Transfer Destination Bed,Chair Transfer Technique pt ambulated with FWW Transfer Ability Level of Assist Contact Guard Assistance,Use of Upper Extremities Comments Mobility Comments Pt stood requiring Min A from low chair and CGA from bed. Pt ambulated ~70ft SBA-CGA w/FWW . Pt required Min A of RLE into bed. Pt performed therapeutic exercises in bed. Left pt in bed with alarm on and all needs within reach, SCD's on. Gait Assessment Gait Gait Assistance Required: Standby Assistance,Contact Guard Assist,1 Person Assist Distance (Feet) 70 Able to Maintain Weight Bearing Status Yes During Gait Assistive Devices Assistive Device Gait Belt,Front Wheeled Walker Orthotic/Prosthetic Devices or Brace: No Gait Deviations General Gait Pattern Antalgic,Decreased Stride Length,Decreased Feet Clearance,Flexed Trunk,Step-to Gait Factors Limiting Gait Function Factors Limiting Gait Function Decreased Activity Tolerance, Decreased Sensation,Decreased Strength,Pain,Poor Balance Comments Gait Comments Pt increased ambulation to ~70 ft in room only due to BP. Pt BP in sitting 103/51, standing 108/73. Pt c/o minor lightheadedness in standing. Stair Climbing Assessment Comments Stair Climbing Comments Not assessed. M5 PT-IP Objective Assessments Start: 11/19/19 12:54 Freq: NEEDED Status: Active Protocol: Document 11/19/19 14:44 AW (Rec: 11/19/19 15:19 AW [id number]) Orientation Orientation/Cognition Level of Alertness Alert Orientation Name,Day of Week,Place, Situation Language Function Ability No Deficits Noted Safety Awareness Understands Safety Issues Memory Description No Deficits Noted Gross Range of Motion Lower Extremity ROM Assessment Right Impaired Strength Lower Extremity Strength Assessment Right Impaired Comments Strength Comments RLE 3+/5 Coordination Assessment Gross Coordination Gross Coordination WNL Sensation Assessment Sensation Gross Sensation Right LE Impaired Sensation Description Numbness Comments Sensation Comments Pt still numb in distal RLE following spinal Muscle Tone Muscle Tone WNL Yes M6 PT-IP Treatment Start: 11/19/19 12:54 Freq: NEEDED Status: Active Protocol: Document 11/20/19 13:40 CLB (Rec: 11/20/19 15:00 CLB [id number]) Physical Therapy Treatment Exercises Exercises Ankle Pumps,Gluteal Sets,Quad Sets,Heel Slides,Supine Hip Abduction Education Education Provided Precautions,Weight Bearing Status,Post-Op Packet,Safety M7 PT-IP Assessment and Plan Start: 11/19/19 12:54 Freq: NEEDED Status: Active Protocol: Document 11/20/19 13:40 CLB (Rec: 11/20/19 15:00 CLB [id number]) PT Summary Assessment and Plan Summary Impairments Pain,ROM,Strength,Balance, Sensation,Bed Mobility, Transfers,Gait,Activity Tolerance Assessment Summary Pt continues to have low BP with minor c/o dizziness. Pt increased gait distance requiring SBA-CGA and Min A sit-stand due to low surface. Pt also required Min A of RLE into bed. Pt recalled 3/3 precautions and demonstrated good form during turns verbalizing her understanding of proper foot placement. Pt will need stair training before d/c home with assist. Goals Bed Mobility Goal Standby Assistance Transfer Goal Standby Assistance,Front Wheeled Walker Gait Goal Standby Assistance,Front Wheel Walker Gait Distance 150 Other Goals -up/down 4 steps with unilateral rail CGA Days to Meet Goals 3 Frequency of Treatment Frequency Of Treatment Twice a Day Treatment Plan Physical Therapy Treatment Plan Bed Mobility Training,Transfer Training,Gait Training, Therapeutic Exercise,Balance Retraining,Post Op Education, Discharge Planning,Hot or Cold Pack,Neuromuscular Re-ed Other Recommendations and Next Treatment transfers, progress ambulation Focus distance with FWW; reinforce posterior precautions; assess safety on stairs when appropriate Recommendations To Nursing Amount of Assist Needed 1 Person Assist Discharge Recommendations PT Discharge Recommendations Home with Assistance,Home Health Transportation Needs at Discharge Private Vehicle
--- NOTE | 2019-11-20 14:21 | CM.DANOTE ---
Patient is a 64 year old female who was admitted on 11/19/19 for planned RTHA. Pt has [facility] and [facility] for insurance and her PCP is Dr. Annabel Alcaraz. EMR was reviewed. Per Ortho MD, pt tolerated surgery well and anticipate likely d/c home tomorrow if stable after further PT. Per RN, pt had some bp issues overnight and was on 1L oxygen but now on room air. Per PT, recommending safe d/c home with spouse assist and HH. SW met bedside with pt and explained role and GLOBAL ACCOUNT MANAGER Candie was finishing working with pt and confirmed HH would be beneficial. Pt confirms that she lives at home in [place] in a mobile home with her spouse and is mostly independent with ADL's but with her hip issues she needs help with doning socks and things that require leaning over as she has had a couple hip dislocations. Pt had surgery in Jul 2019 and was able to d/c home with spouse and [facility] at that time. Pt confirms that HH was quite helpful and she feels HH needed at discharge this time as well and preference is [facility] again. Pt states that her is a air conditioning coil assembler and still works but their tenriism is right next door to them and he is available for assist when needed and he is a good caregiver. SW faxed new referral to [facility] with signed F2F and MD orders to review and called to confirm they can accept new referral. Per PT, stairs and CG training to be completed tomorrow as pt continues to have some bp issues today. Plan: SW to follow for likely pt d/c home tomorrow via spouse POV if bp issues resolved and SW to follow for faxing d/c summary to [facility] at discharge. HENNA De Anda Discharge Planning/Care Management CM Discharge Assessment Start: 11/20/19 14:19 Freq: Status: Active Protocol: Document 11/20/19 14:19 BF (Rec: 11/20/19 14:20 BF [id number]) Discharge Planning Assessment Assigned Car Body Designer HENNA Leon DPOA/Assigned Designee Name spouse Khurram Contact Information [phone] Advance Directives? No History Provided By Patient,Family Member,Medical Record Has Patient been admitted in last 30 No days? Prior Living Arrangements Mobile home Household Members spouse Type of transporation used prior to Relies on Others admit Independent with ADL's Yes: most Is patient alert and oriented? Yes Needs Assistance With Home Chores / Shopping Caregiver for Another No Community Services used prior to Physical Therapy admission: DME Already Rented / Owned FWW / Walker Patient/Family Preference Home with Home Health Barriers to Discharge No Comment Pt is POD#1 from hip surgery w / Dr Duval. Pt is SDC likely switch to observation this afternoon PCP: Annabel Alcaraz Payer: MCR/ JADE Reviewed chart and met w/pt this morning. Pt was a little groggy/tired after her PT session. Pt explained she is mostly indp at baseline but does require frequent rest breaks w/activity and has not been able to walk much distance. Pt feels her spouse will be able to assist her upon DC, dtr lives w/them currently but she often works. Likely no barriers to safe return home w /family to assist. Home Health may be helpful if recommended by therapy team although, thus far, PT is recoemmending home w/assist and outpt PT HENNA Mari Discharge Plan Home with Home Health Transportation Arrangement Family Referrals Initiated Home Health Additional Comment [facility] referral If patient plan is home with home health Yes : Has signed face to face form been completed? 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 Pt has been using CPAP everynight and will bring dos Patient Information Reviewed Via Chart Review,Phone Assessment H&P Completed Within 30 Days Yes Comment No current labs, COVID testing identified at time of chart review Primary Care Provider Annabel Alcaraz Seen Specialist in Last 12 Months Yes Specialist Seen Orthopedist Primary Language Croatian Preferred Language Croatian Drag Seiner Required No Height 167.64 cm Weight 108.862 kg Body Mass Index (BMI) 38.7 Hearing Ability Normal Visual Assist Glasses Dentition Type Teeth, Natural Present,Teeth, Missing Barriers to Learning None Other Aids No Hx Anesthesia Reactions Yes: PONV, Respiratory depression s/p RT TKA 2018 Hx Family Anesthesia Reaction No Hx Malignant Hyperthermia No Hx Blood Transfusions No Anesthesia Review Requested Prior Anesthesia review for RT CARMEN 08/01/19 scanned to record County Agricultural Agent Yes: Has concerns about how much her can assist with care at home alcohol intake never Smoking Status Never smoker Substance Use Type does not use Pain Present Pain Reported Musculoskeletal Symptoms Abnormal Gait,Back Pain, Difficulty Walking,Joint Pain, Neck Pain Patient is completely paralyzed or No completely immobile Mental Status Oriented to own ability Does patient have PHILLIPS/SOB No Hx Sleep Apnea Yes CPAP/BIPAP use prescribed and used routinely Will Bring CPAP/BIPAP DOS Yes Currently Taking a Beta Connie No Can You Climb a Flight of Stairs Without No SOB Hx Chest Pain No Hx SOB No Hx Syncope or Dizziness Yes: Syncope Anti-Coagulant Therapy No Has a Material Inspector No Cardiac Testing No Hx Pacemaker/ICD No Pacemaker Rep Required? No Cardiac Clearance Received Not Applicable Diet Type At Home Regular dysphagia No Bladder Pattern Nocturia Urinary Catheter Present No Hx Urinary Self Catheterization No Diabetes Yes HgbA1C 6.2 Date 07/02/19 Patient No Lactating No Hx Drug Resistant Organism No Presence of External or Internal Medical Yes: left hip hardware, CPAP, Devices rt knee/hip prosthesis Have you had any close contact with Unknown, chart review only someone diagnosed with COVID-19? Evaluation/Screening for possible COVID- No 19 infection completed? Marital Status Lives With spouse Prior Living Arrangements Mobile home Support System Spouse Patient Discharge Plan Description Return Home Feels Safe in Current Environment Yes Been Physically Hurt or Threatened By a No Person in Current Environment Do you have thoughts of harming yourself None or others? Are you currently considering suicide? No Do you have a plan to hurt yourself or No Plan others? Do You Have Any Spiritual Beliefs That No May Affect Your HC Choices? Do You Have Any Cultural Practices That No May Affect Your HC Choices? Comment Congregational Who Can We Speak to About Patient's Care Family, friends Identifying Code for Release of Patient [facility] Information Health Care Proxy/Next of Kin Khurram (), Amirah (daughter ), Gretta (daughter) Health Care Proxy Phone Number Khurram: [phone], Amirah: [phone], Gretta: Emergency Contact Name Khurram (), Amirah (daughter ), Gretta (daughter) Emergency Contact Phone Number Khurram: [phone], Amirah: [phone], Gretta: [phone] Advance Directives? No Power of Artificial Snow Making Machine Operator No
[2019-11-20] MEDS: HYDROCODONE/ACET 5/325 TABLET 1 TAB PO (14:44)
[2019-11-20] MEDS: OXYCODONE IR 5 MG TABLET PO ×2 (16:24→20:54)
[2019-11-20] MEDS: hydrOXYzine pamoate 25 MG CAPSULE PO (18:43)
[2019-11-20] MEDS: ATORVASTATIN 20 MG TABLET PO (20:53)
[2019-11-20] MEDS: GABAPENTIN 600 MG TABLET PO (20:55)
--- NOTE | 2019-11-20 21:57 | PC.NURSE ---
pt reports she takes metformin 500mg BID, BG was 173. notified track production engineer provider. VTO to change from once a day to twice a day. SBA to the BR. rt. hip pain with movement.
[2019-11-20] MEDS: METFORMIN XR 500 MG TABLET PO (22:07)
[2019-11-20] MEDS: ZOLPIDEM 5 MG TABLET PO (23:38)
--- NOTE | 2019-11-21 01:30 | PC.NURSE ---
Patient seen and assessed at 2350. Is alert and oriented. Breath sounds diminished at bases with RA sat of 94%; using home CPAP. HRR. BP not as low as it has been; 115/70 but still lightheaded when first getting out of bed. Denies nausea. BT present and is passing flatus but has not had a BM since 11/16. Is able to move self in bed. Up to bathroom with walker and 1 assist; voiding without dysuria, frequency or urgency. Bulky dressing to right hip is CDI. CMS is intact bilaterally. Wearing bilateral timmy SCD's. Fall risk score is high and bed alarm is activated. Medicated with Ambien for sleep.
[2019-11-21] MEDS: HYDROCODONE/ACET 5/325 TABLET 2 TAB PO ×3 (06:03→14:27)
[2019-11-21] MEDS: hydrOXYzine pamoate 25 MG CAPSULE PO ×2 (06:52→12:23)
--- NOTE | 2019-11-21 07:43 | PM.PNPO.1 ---
Subjective Subjective Date Patient Seen: 11/21/19 Time Patient Seen: 07:44 Interval history: Postop day 2 revision right total hip arthroplasty patient doing well. Complains of pain as expected. No other associated complaints Exam Vital Signs (past 8 hours): Oxygen Delivery Method Room Air,CPAP Oxygen Flow Rate 0 Narrative Exam Narrative: Afebrile, vital signs stable No significant lower extremity edema, neurovascular intact Dressing dry and intact Objective Labs Result Diagrams: 11/20/19 05:30 Assessment & Plan Post-op Postoperative Procedures: Procedures Operation Date: 11/19/19 07:45 Actual Procedures Side Surgeon p Total Hip Arthroplasty Revision Right Mike Duval MD Postoperative day: 2 Postoperative status: doing well Postoperative plan narrative: Patient doing well postop day 2. With complaints of moderate pain as anticipated. Anticipate discharge to home today she will continue posterior hip precautions and follow up in clinic in 2 weeks
[2019-11-21 08:00] VITALS: BP 133/63; PULSE 88; RESP 16; TEMP 36.6; O2SAT 93
[2019-11-21] MEDS: GABAPENTIN 300 MG CAPSULE PO (09:46)
[2019-11-21] MEDS: DULOXETINE 30 MG CAPSULE 60 MG PO (09:48)
[2019-11-21] MEDS: hydroCHLOROthiazide 25 MG TABLET PO (09:48)
[2019-11-21] MEDS: ASPIRIN EC 81 MG TABLET PO (09:48)
[2019-11-21] MEDS: LOSARTAN 50 MG TABLET 100 MG PO (09:48)
[2019-11-21] MEDS: DOCUSATE 100 MG CAPSULE PO (09:48)
[2019-11-21] MEDS: METFORMIN XR 500 MG TABLET PO (09:49)
[2019-11-21] MEDS: PANTOPRAZOLE 20 MG TABLET PO (09:49)
[2019-11-21] MEDS: SODIUM CHLORIDE 0.9% FLUSH 10 ML IV (09:51)
[2019-11-21 12:00] VITALS: BP 119/55; PULSE 83; RESP 17; TEMP 36.9; O2SAT 87
--- NOTE | 2019-11-21 12:26 | PT.IPTN ---
Current Diagnoses Unilateral primary osteoarthritis, right hip (11/19/19) Dislocation of unspecified internal joint prosthesis, initial encounter (11/19/19) Surgery Performed Operation Date: 11/19/19 07:45 Actual Procedures p Total Hip Arthroplasty Revision(Right) - Mike Duval MD Physical Therapy Treatment Note M2 PT-IP Current Condition Start: 11/19/19 12:54 Freq: NEEDED Status: Active Protocol: Document 11/19/19 14:44 AW (Rec: 11/19/19 15:19 AW [id number]) Physical Therapy Current Condition Current Condition Evaluation Date 11/19/19 Treatment Diagnosis s/p revision R CARMEN; difficulty in walking Onset Date 11/19/19 Precautions Posterior Hip Precautions No Hip Flexion > 90 degrees,No Hip Internal Rotation,No Hip Adduction Weight Bearing Status Weight Bearing Status Weight Bear as Tolerated M3 PT-IP Subjective Start: 11/19/19 12:54 Freq: NEEDED Status: Active Protocol: Document 11/21/19 11:36 SP (Rec: 11/21/19 13:58 SP [id number]) Subjective Physical Therapy Visit Type Type Treatment Note Visit Start Time 11:36 Visit Stop Time 12:26 Total Visit Minutes 50 Number of LOCKER ATTENDANT Visits 3 Physical Therapy Visit Comments Patient Comments Pt was willing to work with therapy. Patient Goals Pt hopes to return home with her 's support Therapy Pain Assessment Pain When Pain Assessed During Mobility Pain Present Pain Present Pain Reported Location right hip Intensity 4 Scale Used Numeric (1 - 10) Pain Management Techniques Apply Cold,Re-positioning, Timing of Activity with Medications M4 PT-IP Mobility and Gait Start: 11/19/19 12:54 Freq: NEEDED Status: Active Protocol: Document 11/21/19 11:36 SP (Rec: 11/21/19 13:58 SP [id number]) PT-Bed Mobility Assessment Supine to Sit Supine to Sit Standby Assistance Scooting Scooting to Edge of Bed Standby Assistance PT-Transfer Assessment Sit to and From Stand Sit to and from Stand Contact Guard Assistance,Use of Upper Extremities Equipment Transfer Assistive Device Gait Belt,Front Wheeled Walker Orthotic/Prosthetic Devices or Brace: No Transfers Transfer Destination Chair,Wheelchair Transfer Technique pt ambulated with FWW Transfer Ability Level of Assist Standby Assistance,Contact Guard Assistance,Use of Upper Extremities Comments Mobility Comments Supine to sitting and scooting to EOB with HOB flat and no bed rails today to assimulate home SBA with increased time secondary to weakness and tiring but patient able complete herself. Sit to stand CGA using FWW with proper hand placement throughout tx, she advanced RLE pre stand and sit to maintain hip precautions. Recalled 3/3 precautions. Pt was able to ambulate using FWW SBA further into hallway approx 50 ft with w/c follow secondary to requiring seated rest on way to stair for assessment. Pt had good safety asking if w/c was locked before reaching back with nice slow descent. LOCKER ATTENDANT pushed patient rest distance to stairs in w/c. Pt was ableto ascend/descend 3 stairs x2 using R HR and SPC in LUE CGA step to gait with proper patterning and no cuing required, patient did have some audible crepitis in L knee descend but reported no pain. Pt then was able to walk rest of way to her room w/c follow but not needed approx 158 ft. Pt improved increased stride length and foot clearance as distance progressed. Pt was up seated in chair when returned to room with call light and all needs in reach before left. Cold pack repositioned lateral R hip for assist pain control, reported maintained at 4-6/10 during mobility. Therapy recommending home with assistance of and home health PT when medically stable. No caregiver training required pre DC. Gait Assessment Gait Gait Assistance Required: Standby Assistance Distance (Feet) 158 Able to Maintain Weight Bearing Status Yes During Gait Assistive Devices Assistive Device Gait Belt,Front Wheeled Walker Orthotic/Prosthetic Devices or Brace: No Gait Deviations General Gait Pattern Antalgic,Decreased Stride Length,Decreased Feet Clearance,Step-to Gait Factors Limiting Gait Function Factors Limiting Gait Function Decreased Activity Tolerance, Decreased Sensation,Decreased Strength,Pain,Poor Balance Comments Gait Comments See mobility comments. BP not assessed during tx, non symptomatic during mobility. Stair Climbing Assessment Evaluation Level of Assist On Stairs Contact Guard Assistance Devices Stair Climbing Assistive Devices Straight Cane,Right Railing Technique/Endurance Stair Climbing Direction Ascend and Descend Stair Climbing Technique Step to Step Number of Steps Climbed 3 Stair Climbing Set # Repetitions (reps) 2 Comments Stair Climbing Comments See mobility comments. PT-Balance Assessment Sitting Balance and Reactions Static Sitting Balance Ability Good Dynamic Sitting Balance Ability Good Standing Balance and Reactions Static Standing Balance Ability Good Dynamic Standing Balance Ability Good Device Used FWW M5 PT-IP Objective Assessments Start: 11/19/19 12:54 Freq: NEEDED Status: Active Protocol: Document 11/19/19 14:44 AW (Rec: 11/19/19 15:19 AW [id number]) Orientation Orientation/Cognition Level of Alertness Alert Orientation Name,Day of Week,Place, Situation Language Function Ability No Deficits Noted Safety Awareness Understands Safety Issues Memory Description No Deficits Noted Gross Range of Motion Lower Extremity ROM Assessment Right Impaired Strength Lower Extremity Strength Assessment Right Impaired Comments Strength Comments RLE 3+/5 Coordination Assessment Gross Coordination Gross Coordination WNL Sensation Assessment Sensation Gross Sensation Right LE Impaired Sensation Description Numbness Comments Sensation Comments Pt still numb in distal RLE following spinal Muscle Tone Muscle Tone WNL Yes M6 PT-IP Treatment Start: 11/19/19 12:54 Freq: NEEDED Status: Active Protocol: Document 11/21/19 11:36 SP (Rec: 11/21/19 13:58 SP [id number]) Physical Therapy Treatment Education Education Provided Precautions,Safety Other Treatments Other Treatment Performed End of tx discussed and patient verbally recalled LE exercises seated: LAQ, HRTR, supine: quad and glut sets, hip abd/add to neutral, heel slide ankle pumps. M7 PT-IP Assessment and Plan Start: 11/19/19 12:54 Freq: NEEDED Status: Active Protocol: Document 11/21/19 11:36 SP (Rec: 11/21/19 13:58 SP [id number]) PT Summary Assessment and Plan Potential Rehabilitation Potential Good Status of Condition at Evaluation Evolving Summary Impairments Pain,ROM,Strength,Balance, Sensation,Bed Mobility, Transfers,Gait,Activity Tolerance Assessment Summary Pt did not have any dizziness during tx today, required SBA- CGA during mobility using FWW , don't feel caregiver training with spouse is required prior to DC. Pt increased gait distance requiring SBA, SBA sit-stand . Pt recalled 3/3 precautions and demonstrated good form during turns verbalizing her understanding of proper foot placement. Therapy recommending home with assist, home health PT when medically stable. Pt has call light and all needs in reach seated in chair when left. LOCKER ATTENDANT discussed patient's response to tx and recommendations. Goals Bed Mobility Goal Standby Assistance Transfer Goal Standby Assistance,Front Wheeled Walker Gait Goal Standby Assistance,Front Wheel Walker Gait Distance 150 Other Goals -up/down 4 steps with unilateral rail CGA Days to Meet Goals 3 Frequency of Treatment Frequency Of Treatment Twice a Day Treatment Plan Physical Therapy Treatment Plan Bed Mobility Training,Transfer Training,Gait Training, Therapeutic Exercise,Balance Retraining,Post Op Education, Discharge Planning,Hot or Cold Pack,Neuromuscular Re-ed Other Recommendations and Next Treatment transfers, progress ambulation Focus distance with FWW; reinforce posterior precautions; assess safety on stairs when appropriate Recommendations To Nursing Amount of Assist Needed Standby Assistance Discharge Recommendations PT Discharge Recommendations Home with Assistance,Home Health Transportation Needs at Discharge Private Vehicle
--- NOTE | 2019-11-21 14:59 | CM.DPC ---
DCP Discharge home with HH Per Ortho , pt medically stable to d/c home later today after further PT/OT. Per OT, plan to work with pt on stairs today prior to d/c home. PT/OT still recommending HH at discharge. SW met bedside with pt while RN was completing d/c instructions and updated pt on [facility] acceptance and pt aware that they will call her tomorrow to set up first home visit. SW called [facility] and updated on pt d/c today and completed prog note not d/c summary currently stating pt was to discharge home and they are agreeable with prog note not d/c summary. VANESSA Gonzalez kindly faxed the prog note for today with discharge. Plan: Patient to d/c home today via spouse POV and [facility] to open pt to service. HENNA De Anda
--- NOTE | 2019-11-21 15:26 | PC.NURSE ---
Discharge: Feels ready to d/c home. MD here and gave d/c instructions. 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 Understands her total hip precautions. Diet tolerated w/out problems. Po pain meds effective and has Rx. Vds w/out diff. No bm yet and discussed measures to relieve constipation. Reviewed d/c packet. Questions answered. New aquacel applied to incision. [place] intact and no redness or drainage seen. Pt d/c home via auto w/spouse.
== END 2019-11-21 15:00 | disposition home health service (06) | DRG 468 ==
PROVIDERS: Admitting Provider Orthopaedic Surgery; PCP Physician Assistant; Referring Provider Orthopaedic Surgery; Visit Provider Orthopaedic Surgery
PROC: 0SRA01A Replacement of Right Hip Joint, Acetabular Surface with Metal Synthetic Substitute, Uncemented, Open Approach (ICD-10-PCS; principal; 2019-11-19 07:45)
DX: T84.020A Dislocation of internal right hip prosthesis, initial encounter (principal); M16.11 Unilateral primary osteoarthritis, right hip; Z96.643 Presence of artificial hip joint, bilateral; I10 Essential (primary) hypertension; E78.5 Hyperlipidemia, unspecified; G47.33 Obstructive sleep apnea (adult) (pediatric); Z01.818 Encounter for other preprocedural examination
CPT/HCPCS: 36415; 72170; 73502; 82962; 85014; 85018; 87635; 97110; 97116; 97161; 97530; C1776; J0690; J1100; J1170; J1885; J2250; J2270; J2405; J2704; J2795

== ENCOUNTER 2025-03-06 10:41 | Outpatient (CLI) | payer MEDICARE, SELFPAY ==
[2019-11-19 12:52] VITALS: BMI 39.4
[2025-03-06 10:50] VITALS: BP 125/67; PULSE 78; RESP 16; TEMP 36.6; O2SAT 93
[2025-03-06 11:09] VITALS: BP 133/63; PULSE 79; RESP 18; O2SAT 91
[2025-03-06] MEDS: LIDOCAINE 1% (PF) 5 ML INJ (11:13)
[2025-03-06 11:16] VITALS: BP 151/70; PULSE 82; RESP 18; O2SAT 97
[2025-03-06 11:25] VITALS: BP 134/61; PULSE 75; RESP 16; O2SAT 99
--- NOTE | 2025-03-06 12:19 | PM.PROC.IR.1 ---
Date/Time/Diagnoses Date of procedure: 01/23/25 Time of procedure: 11:00 Pre-procedure diagnosis: Lumbar radiculopathy Post-procedure diagnosis: same Procedure Notes Procedure: Interlaminar epidural steroid injection L3-4 Indications: Lumbar radiculopathy Physician: Jesus Manuel Pang Total sedation minutes: 0 Complications: none Procedure in detail & Post-procedure care: Patient is here for the planned procedure today as noted. No significant change since the last office visit. For additional clinical scenario please see those office notes. Focused exam: Vital signs reviewed as charted on intake. Gen: Well developed. No acute distress. Obese. CV: RRR, no M/R/G Chest: Non-labored breathing, CTAB. Psych: Alert and well-oriented. Mood/Affect: normal. Patient suitable for the planned procedure today: Yes === The following procedure was performed in the office today: Lumbar Epidural Steroid Injection with fluoroscopic guidance - Interlaminar approach (42344) Levels Treated: L3-4 Approach: interlaminar Soft tissue: [1% lidocaine 2 mL] Test dose: [1% lidocaine 1 mL] Injectate: 0.75 mL of Depo-Medrol (80mg/mL) in 1.25 mL 1% lidocaine and 1 mL normal saline Fluoroscopy Agent: Isovue 300-M 1.5 mL Notes: Right paramedian approach. 4.5 in 20 gauge Touhy needle utilized and adequate. Preprocedure pain 6/10, postprocedure pain 4/10. Procedure: After discussing the risks, benefits, and alternatives to the procedure, the patient expressed understanding and wished to proceed. The risks include but are not limited to infection, allergic reaction, nerve damage, stroke, paralysis, epidural hematoma, syncope, headache, respiratory or cardiac arrest, spinal cord injury, and scar formation. Informed consent was obtained and all patient questions were answered. The patient was brought to the procedure suite and placed in the prone position. A pre-procedural pause was conducted to verify: correct patient identity, procedure to be performed and as applicable, correct side and site, correct patient position, and any special requirements. Using a paramedian approach from the side noted above, the region overlying the target was localized under fluoroscopic visualization and the soft tissues overlying this structure were infiltrated with the anesthetic listed above. With fluoroscopic guidance, a #20 gauge Tuohy needle (unless otherwise noted) was inserted into the epidural space using a paramedian approach. The epidural space was localized utilizing intermittent multiplanar fluoroscopic guidance and loss of resistance technique. After negative aspiration, the contrast noted above was injected into the epidural space and the flow of contrast was observed, confirming epidural spread without evidence of intravascular or intrathecal spread. Multi-planar radiographs were obtained for documentation purposes. A test dose of lidocaine was injected into the above noted epidural space, and the patient was observed for 30-60 seconds. No sensory deficits were reported and normal lower extremity motor function was noted. Subsequently, the injectate as noted above was administered into the level noted above. The patient tolerated the procedure well and was discharged after an appropriate period of observation. If there are any complications, the patient was instructed to call us. The patient is to follow-up with the requesting provider in 2-3 weeks. This note was compiled using voice recognition software and therefore may contain typos. Please contact the author with any questions or concerns.
== END 2025-03-06 11:35 | disposition home or self-care (01) ==
PROVIDERS: PCP Physician Assistant; Referring Provider Physician Assistant; Visit Provider Physical Medicine & Rehabilitation
DX: M54.16 Radiculopathy, lumbar region (principal)
CPT/HCPCS: 62323; J1010